=== PATIENT | male | born 2000 | race Two or more races ===

== ENCOUNTER 2022-06-18 12:03 | Inpatient (IN) | payer OTHER, SELFPAY ==
--- NOTE | 2022-06-18 | ECG_ITS ---
Test Reason : MEDICAL CLEARANCE Blood Pressure : / mmHG Vent. Rate : 066 BPM Atrial Rate : 066 BPM P-R Int : 100 ms QRS Dur : 080 ms QT Int : 386 ms P-R-T Axes : 063 044 020 degrees QTc Int : 404 ms Sinus rhythm with short MO Otherwise normal ECG No previous ECGs available Referred By: Jairo Stevens Electronically Signed By:IFEOMA RIDDLE
[2022-06-18 12:49] VITALS: BP 121/65; BP 121/80; PULSE 62; PULSE 80; RESP 18; TEMP 36.2; O2SAT 100; BMI 21.9
--- NOTE | 2022-06-18 13:06 | ED.PSYCH ---
HPI - Psych General Chief Complaint: Psychiatric Symptoms Stated Complaint: SECTION 12 Source: patient Mode of arrival: ambulatory Limitations: no limitations History of Present Illness HPI Narrative: 21 yold male history of schizophrenia presents to the ED for suicidal ideation. Patient seen by [facility] in the field he had a Section 12 for inpatient bed search. Patient states his plan would be to manipulate someone to trip him cecal fall and stab himself with us class. Patient states no support at home and not taking his psych meds. Related Data Home Medications Medication Instructions Recorded Confirmed guanfacine 1 mg tablet 1 mg PO BEDTIME 06/18/22 06/18/22 ibuprofen 400 mg Q8-10H PRN Pain (Scale 06/18/22 06/18/22 Score 4-6) paliperidone 3 mg tablet,extended 6 mg PO DAILY 06/18/22 06/18/22 release 24 hr (Invega) Allergies Allergy/AdvReac Type Severity Reaction Status Date / Time fish derived [fish] AdvReac Stomach Verified 06/18/22 13:12 Upset Review of Systems Review of Systems: Suicidal ideation Yes all other systems are reviewed and are negative [facility] Social History Social History Advance Directives: No Advance Directives Information Provided: No Physical Exam Vital Signs: Vital Signs: Last Vital Signs Temp 97.2 F 06/18/22 12:49 Pulse 62 06/18/22 12:49 Resp 18 06/18/22 12:49 BP 121/65 06/18/22 12:49 Pulse Ox 100 06/18/22 12:49 O2 Del Method 06/18/22 12:49 BMI result Body Mass Index 21.9 Const: General: cooperative, healthy appearing, comfortable, no acute distress, well developed, alert, awake and Physically active Orientation/consciousness: oriented to time and patient oriented x3 HEENT: Head: Yes normal to inspection, Yes No palpable skull fracture present, Yes normocephalic, Yes atraumatic and No abrasion Eyes: General: appearance normal, both eyes and all related structures Neck: Neck: Yes normal visual inspection, Yes full ROM, Yes no lymphadenopathy, Yes no meningeal signs, Yes trachea midline, Yes supple, No anterior neck swelling and No tender Chest: Chest palpation & inspection: normal inspection of the chest and normal palpation of entire chest wall Resp: Effort & Inspection: normal respiratory effort and able to speak in complete sentences Cardio: Jugular venous distension: no JVD Heart sounds: S1 normal heart sound present and S2 normal heart sound present GI: Inspection: Yes normal to inspection and No abdominal wall ecchymosis Palpation (GI): Soft to palpation, not firm, nontender, no guarding and not rigid : General: No CVA tenderness and Yes no CVA tenderness Back/Spine/Pelvis: Back: no CVA tenderness, No CVA tenderness and No back tenderness Skin: General skin exam: no rashes or lesions noted, elasticity normal and turgor normal Neuro: General: oriented to time, patient oriented x3, gait normal, no meningeal signs and CN's II-XI intact bilaterally Cranial nerves: Yes CN's II-XII intact bilaterally Extrem: General: Yes normal to inspection and Yes full ROM Psych: Appearance: grossly normal, well kempt and not disheveled Course Course Course Narrative: Patient accepted to inpatient psych. Will have labs medical evaluation Reevaluation(s) Reevaluation #1: Labs are normal. Patient has a bed search Time: 20:05 MDM - Psych MDM Narrative Medical decision making narrative: Depression Lab Data Result diagrams: 06/18/22 13:36 06/18/22 13:35 Labs: Lab Results 06/18/22 06/18/22 06/18/22 Range/Units 13:35 13:35 13:36 WBC 6.3 (4.8-10.8) X10*3/uL RBC 5.15 (4.60-5.80) X10*6/uL Hgb 14.9 (14.0-18.0) g/dl Hct 44.6 (42.0-52.0) % MCV 86.6 (80.0-98.0) fL MCH 28.9 (27.0-33.0) pg MCHC 33.4 (31.0-36.0) g/dl RDW 12.5 (11.0-16.0) % Plt Count 273 (160-400) X10*3/uL MPV 10.4 (9.4-12.4) fL Immature Gran % (Auto) 0.3 (0.0-0.4) % Neut % (Auto) 60.4 (45-73) % Lymph % (Auto) 29.0 (20-40) % [place] % (Auto) 7.3 (2-11) % Eos % (Auto) 2.7 (0-4) % Baso % (Auto) 0.3 (0-2) % Lymph # (Auto) 1.8 (1.2-4.9) X10*3/uL [place] # (Auto) 0.5 (0.1-1.2) X10*3/uL Eos # (Auto) 0.2 (0.0-0.4) X10*3/uL Baso # (Auto) 0.0 (0.0-0.2) X10*3/uL Abs Immat Gran (auto) 0.02 (0.00-0.03) X10*3/uL Absolute Neuts (auto) 3.8 (2.0-8.3) x10*3/uL Absolute Nucleated RBC 0.000 (0.0-0.012) X10*3/uL Nucleated RBC % (auto) 0.0 (0.0-0.2) /100WBC Sodium 142 (135-145) mmol/L Potassium 3.7 (3.3-5.1) mmol/L Chloride 104 (96-108) mmol/L Carbon Dioxide 28 (22-29) mmol/L Anion Gap 14 (12-20) BUN 12 (9-16) mg/dL Creatinine 0.94 (0.5-1.4) mg/dL Estim Creat Clear Calc 112.5 Estimated GFR > 60 Random Glucose 81 (60-115) mg/dL Calcium 9.3 (8.4-10.2) mg/dL Total Bilirubin 0.6 (0.0-1.0) mg/dL AST 56 H (5-37) U/L ALT 49 H (0-40) U/L Alkaline Phosphatase 67 (39-117) U/L Total Protein 6.2 L (6.5-8.0) g/dL Albumin 4.2 (3.5-5.0) g/dL Urine Opiates Screen Not Detected (Not Detect) Urine Fentanyl Screen Not Detected (Not Detect) Ur Barbiturates Screen Not Detected (Not Detect) Ur Phencyclidine Scrn Not Detected (Not Detect) Ur Amphetamines Screen Not Detected (Not Detect) U Benzodiazepines Scrn Not Detected (Not Detect) Urine Cocaine Screen Not Detected (Not Detect) U Marijuana (THC) Screen POSITIVE H (Not Detect) Ethyl Alcohol < 10 mg/dL COVID-19 (JAZLYN) (Negative) COVID-19 Clin Com 06/18/22 Range/Units 13:41 WBC (4.8-10.8) X10*3/uL RBC (4.60-5.80) X10*6/uL Hgb (14.0-18.0) g/dl Hct (42.0-52.0) % MCV (80.0-98.0) fL MCH (27.0-33.0) pg MCHC (31.0-36.0) g/dl RDW (11.0-16.0) % Plt Count (160-400) X10*3/uL MPV (9.4-12.4) fL Immature Gran % (Auto) (0.0-0.4) % Neut % (Auto) (45-73) % Lymph % (Auto) (20-40) % [place] % (Auto) (2-11) % Eos % (Auto) (0-4) % Baso % (Auto) (0-2) % Lymph # (Auto) (1.2-4.9) X10*3/uL [place] # (Auto) (0.1-1.2) X10*3/uL Eos # (Auto) (0.0-0.4) X10*3/uL Baso # (Auto) (0.0-0.2) X10*3/uL Abs Immat Gran (auto) (0.00-0.03) X10*3/uL Absolute Neuts (auto) (2.0-8.3) x10*3/uL Absolute Nucleated RBC (0.0-0.012) X10*3/uL Nucleated RBC % (auto) (0.0-0.2) /100WBC Sodium (135-145) mmol/L Potassium (3.3-5.1) mmol/L Chloride (96-108) mmol/L Carbon Dioxide (22-29) mmol/L Anion Gap (12-20) BUN (9-16) mg/dL Creatinine (0.5-1.4) mg/dL Estim Creat Clear Calc Estimated GFR Random Glucose (60-115) mg/dL Calcium (8.4-10.2) mg/dL Total Bilirubin (0.0-1.0) mg/dL AST (5-37) U/L ALT (0-40) U/L Alkaline Phosphatase (39-117) U/L Total Protein (6.5-8.0) g/dL Albumin (3.5-5.0) g/dL Urine Opiates Screen (Not Detect) Urine Fentanyl Screen (Not Detect) Ur Barbiturates Screen (Not Detect) Ur Phencyclidine Scrn (Not Detect) Ur Amphetamines Screen (Not Detect) U Benzodiazepines Scrn (Not Detect) Urine Cocaine Screen (Not Detect) U Marijuana (THC) Screen (Not Detect) Ethyl Alcohol mg/dL COVID-19 (JAZLYN) Negative (Negative) COVID-19 Clin Com See Note Discharge Plan Discharge Clinical Impression: Chronic schizophrenia, Depression Patient Disposition: Still a Patient Prescriptions: No Action paliperidone [Invega] 3 mg Tablet Extended Release 24hr 6 mg PO DAILY guanfacine 1 mg Tablet 1 mg PO BEDTIME ibuprofen 400 mg Q8-10H PRN (Reason: Pain (Scale Score 4-6))
[2022-06-18 13:41] LABS: MANUAL DIFF FLAG NO
[2022-06-18 13:45] LABS: Basophils Percent Auto 0.3 % (0-2); Eosinophils Absolute Auto 0.2 X10*3/uL (0.0-0.4); Eosinophils Percent Auto 2.7 % (0-4); Hematocrit 44.6 % (42.0-52.0); Hemoglobin 14.9 g/dl (14.0-18.0); Imm Gran Abs Auto 0.02 X10*3/uL (0.00-0.03); Imm Gran Pct Auto 0.3 % (0.0-0.4); Lymphocytes Absolute Auto 1.8 X10*3/uL (1.2-4.9); Mean Corpuscular HGB Conc 33.4 g/dl (31.0-36.0); Mean Corpuscular Hemoglobin 28.9 pg (27.0-33.0); Mean Corpuscular Volume 86.6 fL (80.0-98.0); Mean Platelet Volume 10.4 fL (9.4-12.4); Monocytes Absolute Auto 0.5 X10*3/uL (0.1-1.2); Monocytes Percent Auto 7.3 % (2-11); Neutrophils Absolute Auto 3.8 x10*3/uL (2.0-8.3); Neutrophils Percent Auto 60.4 % (45-73); Platelet Count 273 X10*3/uL (160-400); Red Blood Count 5.15 X10*6/uL (4.60-5.80); Red Cell Distribution Width 12.5 % (11.0-16.0); White Blood Count 6.3 X10*3/uL (4.8-10.8)
[2022-06-18 14:04] LABS: Alanine Aminotransferase 49 U/L (0-40); Albumin Level 4.2 g/dL (3.5-5.0); Alkaline Phosphatase 67 U/L (39-117); Anion Gap 14 (12-20); Aspartate Amino Transferase 56 U/L (5-37); Bilirubin Total 0.6 mg/dL (0.0-1.0); Blood Urea Nitrogen 12 mg/dL (9-16); Calcium 9.3 mg/dL (8.4-10.2); Carbon Dioxide 28 mmol/L (22-29); Chloride 104 mmol/L (96-108); Creatinine Clr Calc Pharmacy 112.5; Estimated Glomerular Filt Rate > 60; Ethanol < 10 mg/dL; Glucose Random 81 mg/dL (60-115); Potassium 3.7 mmol/L (3.3-5.1); Sodium 142 mmol/L (135-145); Total Protein 6.2 g/dL (6.5-8.0)
[2022-06-18 14:15] LABS: COVID-19 Test Negative (Negative)
[2022-06-18 14:16] LABS: Amphetamine Screen Urine Not Detected (Not Detect); Barbiturates, Urine Not Detected (Not Detect); Benzodiazepines Screen Urine Not Detected (Not Detect); Cannabinoid Screen Urine POSITIVE (Not Detect); Cocaine Screen Urine Not Detected (Not Detect); Fentanyl, urine Not Detected (Not Detect); Opiate Screen Urine Not Detected (Not Detect); Phencyclidine Screen Urine Not Detected (Not Detect)
--- NOTE | 2022-06-18 18:48 | PC.NURSE ---
Late entry- pt found to be vaping in bathroom. Vape removed from pt, provider aware. Pt requesting his dinner, provided with tray, immediately went to the bathroom and started flushing food down the toilet. Food removed from bathroom.
--- NOTE | 2022-06-18 22:46 | PC.NURSE ---
Pt is a COVID-negative 21-year-old male admitted from [facility] with diagnosis of ADHD after engaging in risky behavior and medication non adherence. Pt was not forthcoming during nursing admission assessment. He was cooperative with sometimes intense eye contact. Denies medical history, denies substance abuse. States only mental health care was 16 years ago. Pt reports trying to starve himself and that is why his program brought him to hospital.
[2022-06-18] MEDS: hydrOXYzine HCL 25 MG TABLET PO (23:30)
[2022-06-18] MEDS: traZODone HCL 50 MG TABLET PO (23:30)
[2022-06-18] MEDS: OLANZapine 10 MG TABLET PO (23:56)
[2022-06-18] MEDS: LORazepam 1 MG TABLET 2 MG PO (23:56)
--- NOTE | 2022-06-19 01:52 | PC.NURSE ---
1:1-placed on 1:1 status after being in the shower and ripping apart his underwear and making it into a skirt like garment. patients penis was visible under garment. difficult to get him into clothing but did put on pants with much prompting to do so. after shower did accept po medications for sleep/anxiety but pt's behavior continued to escalate with patient pacing, running in the hallways, running in and out of others room and then flicking the light switch off and on to his and his roommates room when roommate was attempting to sleep. patient's mood exhibited lability exhibiting laughter then tears, appearance of responding to IS, and then appearing suspicious with posturing body movements. did agree to accept additional prn medication when offered.
[2022-06-19 09:44] LABS: Estimated Average Glucose 88 mg/dL; Hemoglobin A1c % 4.7 %
[2022-06-19 10:00] LABS: Cholesterol 130 mg/dL; HDL Cholesterol 45 mg/dL; LDL Cholesterol Calculated 75 mg/dl; Magnesium 2.2 mg/dL (1.6-2.6); Triglycerides 53 mg/dL
[2022-06-19 10:23] LABS: Free T4 (Free Thyroxine) 1.14 ng/dL (0.71-1.85); Thyroid Stimulating Hormone 1.52 uIU/mL (0.32-4.0)
[2022-06-19 10:45] LABS: Folate 5.5 ng/mL (> or = 4.0); Vitamin B12 353 pg/mL (200-900)
--- NOTE | 2022-06-19 10:49 | HO.PSYADMNOT ---
HPI Date of Service: 06/19/22 Chief Complaint: SI Sources of Information: patient interviewed, chart reviewed and crisis/core team assessment reviewed HPI Subjective Notes: Conditional Voluntary Narrative: Mr. Tran is a 21 year-old male with hx of Bipolar Disorder versus Schizoaffective disorder who was brought via EMS after being evaluated by [facility] crisis after [facility] staff called them reporting that pt had stopped medications (paliperidone, guanfacine) about one month and has presented as agitated, walking naked down the street stating he wanted to be a stripper, breaking into store (one week ago) and was arrested. In the ED, his utox is positive for cannabinoids. On the unit, he tore up clothing in shower, was running around without clothes. He received PRN medication of olanzapine with ativan with good effect. Today, pt in bed. He is on a one to one due to inappropriate sexual behaviors and intrusiveness. Pt covers his face with blanket and turns around to avoid further conversation with this underwriter. He reports he does not know why he is here. Although he does report that he was not eating I was not hungry, then states he thinks this is reason for being in the hospital. When asked about incident of walking naked on street and here on the unit, patient states that's not true!. He denies VH/AH but appears internally preoccupied. He denies SI/HI. He reports difficulty sleeping prior to coming to the hospital. Past Psychiatric History: Inpatient:unknown OP: Psychiatrist Dr. White ([phone]); Lucia Crabtree (from [facility]) [facility] [phone] [facility] workerRenaldo [phone] Past medication trials: paliperidone, guanfacine Medical Evaluation Reviewed: Yes [facility] Family History: mother with schizophrenia Social History: Per [facility] records: pt raised by maternal aunt as mother has schizophrenia. He later went to foster home as [employer] tried to poison aunt. Pt aged out of [facility] system and transition to A housing. He has continued to have voluntary services through [facility]. Substance History: cannabis: unknown amount or frequency Trauma History: unknown Diagnostics Vital Signs (24Hr): Vital Signs - 24 hr 06/18/22 12:49 Temperature 97.2 F Pulse Rate 62 Respiratory Rate 18 Blood Pressure 121/65 Pulse Oximetry 100 Oxygen Delivery Method Room Air BMI result Body Mass Index 21.9 Labs Results: 06/18/22 13:36 06/18/22 13:35 Labs: Laboratory Results - last 48 hr 06/18/22 06/18/22 06/18/22 13:35 13:35 13:36 WBC 6.3 RBC 5.15 Hgb 14.9 Hct 44.6 MCV 86.6 MCH 28.9 MCHC 33.4 RDW 12.5 Plt Count 273 MPV 10.4 Immature Gran % (Auto) 0.3 Neut % (Auto) 60.4 Lymph % (Auto) 29.0 [place] % (Auto) 7.3 Eos % (Auto) 2.7 Baso % (Auto) 0.3 Lymph # (Auto) 1.8 [place] # (Auto) 0.5 Eos # (Auto) 0.2 Baso # (Auto) 0.0 Abs Immat Gran (auto) 0.02 Absolute Neuts (auto) 3.8 Absolute Nucleated RBC 0.000 Nucleated RBC % (auto) 0.0 Sodium 142 Potassium 3.7 Chloride 104 Carbon Dioxide 28 Anion Gap 14 BUN 12 Creatinine 0.94 Estim Creat Clear Calc 112.5 Estimated GFR > 60 Random Glucose 81 Estimat Average Glucose Hemoglobin A1c % Calcium 9.3 Magnesium Total Bilirubin 0.6 AST 56 H ALT 49 H Alkaline Phosphatase 67 Total Protein 6.2 L Albumin 4.2 Triglycerides Cholesterol LDL Cholesterol, Calc HDL Cholesterol Vitamin B12 Folate TSH Free T4 Urine Opiates Screen Not Detected Urine Fentanyl Screen Not Detected Ur Barbiturates Screen Not Detected Ur Phencyclidine Scrn Not Detected Ur Amphetamines Screen Not Detected U Benzodiazepines Scrn Not Detected Urine Cocaine Screen Not Detected U Marijuana (THC) Screen POSITIVE H Ethyl Alcohol < 10 COVID-19 (JAZLYN) COVID-19 Clin Com 06/18/22 06/19/22 06/19/22 13:41 09:06 09:06 WBC RBC Hgb Hct MCV MCH MCHC RDW Plt Count MPV Immature Gran % (Auto) Neut % (Auto) Lymph % (Auto) [place] % (Auto) Eos % (Auto) Baso % (Auto) Lymph # (Auto) [place] # (Auto) Eos # (Auto) Baso # (Auto) Abs Immat Gran (auto) Absolute Neuts (auto) Absolute Nucleated RBC Nucleated RBC % (auto) Sodium Potassium Chloride Carbon Dioxide Anion Gap BUN Creatinine Estim Creat Clear Calc Estimated GFR Random Glucose Estimat Average Glucose 88 Hemoglobin A1c % 4.7 Calcium Magnesium 2.2 Total Bilirubin AST ALT Alkaline Phosphatase Total Protein Albumin Triglycerides 53 Cholesterol 130 LDL Cholesterol, Calc 75 HDL Cholesterol 45 Vitamin B12 Folate TSH 1.52 Free T4 1.14 Urine Opiates Screen Urine Fentanyl Screen Ur Barbiturates Screen Ur Phencyclidine Scrn Ur Amphetamines Screen U Benzodiazepines Scrn Urine Cocaine Screen U Marijuana (THC) Screen Ethyl Alcohol COVID-19 (JAZLYN) Negative COVID-19 [employer] Com See Note 06/19/22 09:06 WBC RBC Hgb Hct MCV MCH MCHC RDW Plt Count MPV Immature Gran % (Auto) Neut % (Auto) Lymph % (Auto) [place] % (Auto) Eos % (Auto) Baso % (Auto) Lymph # (Auto) [place] # (Auto) Eos # (Auto) Baso # (Auto) Abs Immat Gran (auto) Absolute Neuts (auto) Absolute Nucleated RBC Nucleated RBC % (auto) Sodium Potassium Chloride Carbon Dioxide Anion Gap BUN Creatinine Estim Creat Clear Calc Estimated GFR Random Glucose Estimat Average Glucose Hemoglobin A1c % Calcium Magnesium Total Bilirubin AST ALT Alkaline Phosphatase Total Protein Albumin Triglycerides Cholesterol LDL Cholesterol, Calc HDL Cholesterol Vitamin B12 353 Folate 5.5 TSH Free T4 Urine Opiates Screen Urine Fentanyl Screen Ur Barbiturates Screen Ur Phencyclidine Scrn Ur Amphetamines Screen U Benzodiazepines Scrn Urine Cocaine Screen U Marijuana (THC) Screen Ethyl Alcohol COVID-19 (JAZLYN) COVID-19 [employer] Com Meds/Allergies Meds Home Medications Medication Instructions Recorded Confirmed Type guanfacine 1 mg tablet 1 mg PO BEDTIME 06/18/22 06/18/22 History ibuprofen 400 mg Q8-10H PRN Pain (Scale 06/18/22 06/18/22 History Score 4-6) paliperidone 3 mg tablet,extended 6 mg PO DAILY 06/18/22 06/18/22 History release 24 hr (Invega) Allergies Allergies Allergy/AdvReac Type Severity Reaction Status Date / Time fish derived [fish] AdvReac Stomach Verified 06/18/22 13:12 Upset Mental Status Exam Mental Status Exam Narrative: Appearance: thin, fair hygiene in NAD Behavior:guarded psychomotor:no agitation or retardation noted Speech:minimally spontaneous, answer with yes or no answers to most questions Thought process:some derailment Thought content:not knowing why he was in hospital Mood:unable to assess Affect: somnolent SI:denies HI:denies VH/AH:appears internally preoccupied Delusions:paranoia, sexualized behaviors Insight/judgment:impaired x 2. Memory/cog: alert, not oriented to situation. Assessment & Plan Assessment & Plan (1) Schizoaffective disorder, bipolar type: Status: Acute Code(s): F25.0 - Schizoaffective disorder, bipolar type Plan Mr. Tran is a 21 year-old male with hx of schizoaffective disorder who was brought via EMS to [facility] due to pt presenting with agitation, engaging in risky behaviors ([employer]HA suspect prostitution and breaking into store), walking naked on street, not sleeping or eating. utox positive for cannabinoids. Pt on unit attempting to run naked, disorganized speech, guarded. We discussed risks, benefits and alternative treatment options. Will start lithium for mood stabilization, continue paliperidone, will do STD testing. PLAN 1. admit to , , currently on one to one due to inappropriate sexual conduct and poor boundaries. 2. continue paliperidone, start lithium 300mg po BID, ativan and olanzapine prn for agitation 3. obtain collateral information 4. aftercare planning. Patient educated on: diagnosis, medication risk/benefits and substance abuse Reason for continued inpatient stay Substantial Risk for: harm to self, harm to others and inability to function
[2022-06-19 12:54] VITALS: BP 126/58; PULSE 50; RESP 15; TEMP 36.6; O2SAT 100
[2022-06-19] MEDS: Paliperidone ER 6 MG TAB.ER.24 PO (13:02)
--- NOTE | 2022-06-19 15:50 | PC.NURSE ---
At 1545, pt was in the hallway when he ran by the nurses station and intentionally threw himself on the ground. This was witnessed by this RN and Le Pollack. Pt did not hit his head or injure himself. When this RN and Le Pollack went up to the patient to ask why he threw himself on the floor, pt responded I was just looking for my dinner, when is dinner supposed to be here.
[2022-06-19 16:06] LABS: Syphilis Screen Nonreactive (Nonreactive)
[2022-06-19 22:40] VITALS: RESP 16
--- NOTE | 2022-06-20 09:07 | HO.PSYCHPN ---
Subjective Subjective Date of Service: 06/20/22 Reason For Visit: SI Subjective Notes: Chong Warning Interim History: I spoke with pt's team, no behavioral concerns. I spoke with pt today, pt denies SE on medication, adherent, says I have to respect taking them, I feel more calm. Sleep is pretty good. Denies anxiety. Says he is depressed and attributes this to feeling aimless, does not know where to head my future. Denies A/VH. Denies paranoia. Denies SI/SIB, says he feels safe. Medication Compliance: Yes Side effects from medications: No Attending Groups: No Review of Systems Acute medical concerns: No Medical Review of Systems: unchanged Mental Status Exam Mental Status Exam Narrative: Appearance: thin, fair hygiene in NAD Behavior:guarded psychomotor:no agitation or retardation noted Speech:minimally spontaneous, answer with yes or no answers to most questions Thought process:some derailment Thought content:not knowing why he was in hospital Mood:unable to assess Affect: somnolent SI:denies HI:denies VH/AH:appears internally preoccupied Delusions:paranoia, sexualized behaviors Insight/judgment:impaired x 2. Memory/cog: alert, not oriented to situation. Diagnostics Vital Signs (24Hr): Vital Signs - 24 hr 06/19/22 12:54 06/19/22 22:40 Temperature 97.9 F Pulse Rate 50 Respiratory Rate 15 16 Blood Pressure 126/58 L Pulse Oximetry 100 Oxygen Delivery Method Room Air BMI result Body Mass Index 21.9 Labs Results: 06/18/22 13:36 06/18/22 13:35 Labs: Laboratory Results - last 48 hr 06/18/22 06/18/22 06/18/22 13:35 13:35 13:36 WBC 6.3 RBC 5.15 Hgb 14.9 Hct 44.6 MCV 86.6 MCH 28.9 MCHC 33.4 RDW 12.5 Plt Count 273 MPV 10.4 Immature Gran % (Auto) 0.3 Neut % (Auto) 60.4 Lymph % (Auto) 29.0 [place] % (Auto) 7.3 Eos % (Auto) 2.7 Baso % (Auto) 0.3 Lymph # (Auto) 1.8 [place] # (Auto) 0.5 Eos # (Auto) 0.2 Baso # (Auto) 0.0 Abs Immat Gran (auto) 0.02 Absolute Neuts (auto) 3.8 Absolute Nucleated RBC 0.000 Nucleated RBC % (auto) 0.0 Sodium 142 Potassium 3.7 Chloride 104 Carbon Dioxide 28 Anion Gap 14 BUN 12 Creatinine 0.94 Estim Creat Clear Calc 112.5 Estimated GFR > 60 Random Glucose 81 Estimat Average Glucose Hemoglobin A1c % Calcium 9.3 Magnesium Total Bilirubin 0.6 AST 56 H ALT 49 H Alkaline Phosphatase 67 Total Protein 6.2 L Albumin 4.2 Triglycerides Cholesterol LDL Cholesterol, Calc HDL Cholesterol Vitamin B12 Folate TSH Free T4 Urine Opiates Screen Not Detected Urine Fentanyl Screen Not Detected Ur Barbiturates Screen Not Detected Ur Phencyclidine Scrn Not Detected Ur Amphetamines Screen Not Detected U Benzodiazepines Scrn Not Detected Urine Cocaine Screen Not Detected U Marijuana (THC) Screen POSITIVE H Ethyl Alcohol < 10 T.pallidum Ab (EIA) COVID-19 (JAZLYN) COVID-19 [employer] 06/18/22 06/19/22 06/19/22 13:41 09:06 09:06 WBC RBC Hgb Hct MCV MCH MCHC RDW Plt Count MPV Immature Gran % (Auto) Neut % (Auto) Lymph % (Auto) [place] % (Auto) Eos % (Auto) Baso % (Auto) Lymph # (Auto) [place] # (Auto) Eos # (Auto) Baso # (Auto) Abs Immat Gran (auto) Absolute Neuts (auto) Absolute Nucleated RBC Nucleated RBC % (auto) Sodium Potassium Chloride Carbon Dioxide Anion Gap BUN Creatinine Estim Creat Clear Calc Estimated GFR Random Glucose Estimat Average Glucose 88 Hemoglobin A1c % 4.7 Calcium Magnesium 2.2 Total Bilirubin AST ALT Alkaline Phosphatase Total Protein Albumin Triglycerides 53 Cholesterol 130 LDL Cholesterol, Calc 75 HDL Cholesterol 45 Vitamin B12 Folate TSH 1.52 Free T4 1.14 Urine Opiates Screen Urine Fentanyl Screen Ur Barbiturates Screen Ur Phencyclidine Scrn Ur Amphetamines Screen U Benzodiazepines Scrn Urine Cocaine Screen U Marijuana (THC) Screen Ethyl Alcohol T.pallidum Ab (EIA) COVID-19 (JAZLYN) Negative COVID-19 [employer] See Note 06/19/22 06/19/22 09:06 10:45 WBC RBC Hgb Hct MCV MCH MCHC RDW Plt Count MPV Immature Gran % (Auto) Neut % (Auto) Lymph % (Auto) [place] % (Auto) Eos % (Auto) Baso % (Auto) Lymph # (Auto) [place] # (Auto) Eos # (Auto) Baso # (Auto) Abs Immat Gran (auto) Absolute Neuts (auto) Absolute Nucleated RBC Nucleated RBC % (auto) Sodium Potassium Chloride Carbon Dioxide Anion Gap BUN Creatinine Estim Creat Clear Calc Estimated GFR Random Glucose Estimat Average Glucose Hemoglobin A1c % Calcium Magnesium Total Bilirubin AST ALT Alkaline Phosphatase Total Protein Albumin Triglycerides Cholesterol LDL Cholesterol, Calc HDL Cholesterol Vitamin B12 353 Folate 5.5 TSH Free T4 Urine Opiates Screen Urine Fentanyl Screen Ur Barbiturates Screen Ur Phencyclidine Scrn Ur Amphetamines Screen U Benzodiazepines Scrn Urine Cocaine Screen U Marijuana (THC) Screen Ethyl Alcohol T.pallidum Ab (EIA) Nonreactive COVID-19 (JAZLYN) COVID-19 Clin Com Medications Medications Current Medications Acetaminophen (Acetaminophen 325 Mg Tablet) 650 mg PO Q6H PRN PRN Reason: Headache/Pain Mild Scale (1-3) Al Hydroxide/Mg Hydroxide (Magnesium Hydrox/Alum Hydrox 30 Ml Oral.Susp) 30 ml PO Q6H PRN PRN Reason: Heartburn/Nausea Hydroxyzine HCl (Hydroxyzine Hcl 25 Mg Tablet) 25 mg PO Q6H PRN PRN Reason: Anxiety Last Admin: 06/18/22 23:30 Dose: 25 mg Ibuprofen (Ibuprofen 400 Mg Tablet) 400 mg PO Q8H PRN PRN Reason: Pain (Scale Score 4-6) [place] Carbonate ([place] Carbonate 300 Mg Capsule) 300 mg PO BID DALIA Last Admin: 06/19/22 23:40 Dose: Not Given Lorazepam (Lorazepam 1 Mg Tablet) 1 mg PO Q6H PRN PRN Reason: agitation/anxiety/sleep Magnesium Hydroxide (Milk Of Magnesia 30 Ml Oral.Susp) 30 ml PO DAILY PRN PRN Reason: Constipation Non-Formulary Medication (Guanfacine) 1 mg PO BEDTIME DALIA Olanzapine (Olanzapine Odt 10 Mg Tab.Rapdis) 10 mg TRANSLINGU Q6H PRN PRN Reason: agitation Paliperidone (Paliperidone Er 6 Mg Tab.Er.24) 6 mg PO DAILY DALIA Last Admin: 06/19/22 13:02 Dose: 6 mg Trazodone HCl (Trazodone Hcl 50 Mg Tablet) 50 mg PO BEDTIME PRN PRN Reason: Insomnia Last Admin: 06/18/22 23:30 Dose: 50 mg Allergies Allergies Allergy/AdvReac Type Severity Reaction Status Date / Time fish derived [fish] AdvReac Stomach Verified 06/18/22 13:12 Upset Assessment & Plan Assessment & Plan (1) Schizoaffective disorder, bipolar type: Status: Acute Code(s): F25.0 - Schizoaffective disorder, bipolar type Plan Mr. Tran is a 21 year-old male with hx of schizoaffective disorder who was brought via EMS to [facility] [place] ED due to pt presenting with agitation, engaging in risky behaviors (MHA suspect prostitution and breaking into store), walking naked on street, not sleeping or eating. utox positive for cannabinoids. Pt on unit attempting to run naked, disorganized speech, guarded. We discussed risks, benefits and alternative treatment options. Will start lithium for mood stabilization, continue paliperidone, will do STD testing. PLAN 1. admit to , CV, currently on one to one due to inappropriate sexual conduct and poor boundaries. 2. continue paliperidone, start lithium 300mg po BID, ativan and olanzapine prn for agitation 3. obtain collateral information 4. aftercare planning. 06/20: No med adjustments, pt is maintaining behavioral control, will be taken off 1:1 I spent minutes with the patient and/or on the patient floor today, greater than?50% of which was spent counseling/coordinating care. Patient educated on: medication risk/benefits and therapeutic strategies Reason for contiued inpatient stay Substantial Risk for: inability to function, rapid decompensation and med/psych decompensation
[2022-06-20 10:30] VITALS: BP 125/64; PULSE 65; RESP 18; TEMP 36.6; O2SAT 97
[2022-06-20] MEDS: Lithium Carbonate 300 MG CAPSULE PO (11:20)
[2022-06-20] MEDS: Paliperidone ER 6 MG TAB.ER.24 PO (11:20)
[2022-06-20 23:20] VITALS: RESP 16
[2022-06-21 08:15] VITALS: BP 118/74; PULSE 81; RESP 20; TEMP 36.9; O2SAT 98
[2022-06-21] MEDS: Paliperidone ER 6 MG TAB.ER.24 PO (08:30)
[2022-06-21] MEDS: Lithium Carbonate 300 MG CAPSULE PO ×2 (08:30→20:42)
--- NOTE | 2022-06-21 13:47 | P.PNPSI_ITS ---
Subjective Subjective Date of Service: 06/22/22 Reason For Visit: SI Subjective Notes: Chong Warning Interim History: I spoke with team, pt has been in behavioral control in regards to inappropriate sexual bx/ disinhibition. Adherent with medication. Has been walking around in a wig. This prompted the question of pt's preferred pronouns, which are she/her or they/them, preferred name is Mr. Tran. Says they feel pretty good. I like it here. Sleep was perfect. No questions or concerns. Says they like their meds. Says clonidine helped with sleep. Denies SI/SIB, says they feel safe. Medication Compliance: Yes Side effects from medications: No Attending Groups: No Review of Systems Acute medical concerns: No Medical Review of Systems: unchanged Diagnostics Vital Signs (24Hr): Vital Signs - 24 hr 06/20/22 23:20 06/21/22 08:15 Temperature 98.5 F Pulse Rate 81 Respiratory Rate 16 20 Blood Pressure 118/74 Pulse Oximetry 98 Oxygen Delivery Method Room Air BMI result Body Mass Index 21.9 Labs Results: 06/18/22 13:36 06/18/22 13:35 Labs: Laboratory Results - last 48 hr 06/19/22 10:45 T.pallidum Ab (EIA) Nonreactive Medications Medications Current Medications Acetaminophen (Acetaminophen 325 Mg Tablet) 650 mg PO Q6H PRN PRN Reason: Headache/Pain Mild Scale (1-3) Al Hydroxide/Mg Hydroxide (Magnesium Hydrox/Alum Hydrox 30 Ml Oral.Susp) 30 ml PO Q6H PRN PRN Reason: Heartburn/Nausea Clonidine HCl (Clonidine Hcl 0.1 Mg Tablet) 0.1 mg PO BEDTIME DALIA; Protocol Last Admin: 06/20/22 23:55 Dose: Not Given Hydroxyzine HCl (Hydroxyzine Hcl 25 Mg Tablet) 25 mg PO Q6H PRN PRN Reason: Anxiety Last Admin: 06/18/22 23:30 Dose: 25 mg Ibuprofen (Ibuprofen 400 Mg Tablet) 400 mg PO Q8H PRN PRN Reason: Pain (Scale Score 4-6) [place] Carbonate ([place] Carbonate 300 Mg Capsule) 300 mg PO BID DALIA Last Admin: 06/21/22 08:30 Dose: 300 mg Lorazepam (Lorazepam 1 Mg Tablet) 1 mg PO Q6H PRN PRN Reason: agitation/anxiety/sleep Magnesium Hydroxide (Milk Of Magnesia 30 Ml Oral.Susp) 30 ml PO DAILY PRN PRN Reason: Constipation Olanzapine (Olanzapine Odt 10 Mg Tab.Rapdis) 5 mg TRANSLINGU Q6H PRN PRN Reason: agitation, anxiety Paliperidone (Paliperidone Er 6 Mg Tab.Er.24) 6 mg PO DAILY DALIA Last Admin: 06/21/22 08:30 Dose: 6 mg Trazodone HCl (Trazodone Hcl 50 Mg Tablet) 50 mg PO BEDTIME PRN PRN Reason: Insomnia Last Admin: 06/18/22 23:30 Dose: 50 mg Allergies Allergies Allergy/AdvReac Type Severity Reaction Status Date / Time fish derived [fish] AdvReac Stomach Verified 06/18/22 13:12 Upset Assessment & Plan Assessment & Plan (1) Schizoaffective disorder, bipolar type: Status: Acute Code(s): F25.0 - Schizoaffective disorder, bipolar type Plan Mr. Tran is a 21 year-old male with hx of schizoaffective disorder who was brought via EMS to [facility] [place] ED due to pt presenting with agitation, engaging in risky behaviors (MHA suspect prostitution and breaking into store), walking naked on street, not sleeping or eating. utox positive for cannabinoids. Pt on unit at tempting to run naked, disorganized speech, guarded. We discussed risks, benefits and alternative treatment options. Will start lithium for mood stabilization, continue paliperidone, will do STD testing. PLAN 1. admit to M[facility], CV, currently on one to one due to inappropriate sexual conduct and poor boundaries. 2. continue paliperidone, start lithium 300mg po BID, ativan and olanzapine prn for agitation 3. obtain collateral information 4. aftercare planning. 06/20: Clonidine started at 0.1 mg QHS, as guanfacine is not on formulary. Pt is maintaining behavioral control, will be taken off 1:1 06/21: No med adjustments, pt isolative, will be on 5 min checks while wearing wig. I spent minutes with the patient and/or on the patient floor today, greater than?50% of which was spent counseling/coordinating care. Patient educated on: medication risk/benefits and therapeutic strategies Reason for contiued inpatient stay Substantial Risk for: rapid decompensation and med/psych decompensation
[2022-06-21 20:30] VITALS: BP 105/56; PULSE 68; RESP 16; TEMP 36.6; O2SAT 97
[2022-06-21] MEDS: cloNIDine HCL 0.1 MG TABLET PO (20:43)
[2022-06-22 08:05] LABS: HIV AB/AG Nonreactive (Nonreactive); HIV Num 1 0.04 S/CO (0.00-0.99)
[2022-06-22 08:09] LABS: HBS Num1 1.05 mIU/mL (0-7.99); HBc Num1 0.11 S/CO (0.00-0.79); HBsAGNum1 0.25 S/CO (0.00-0.99); Hepatitis B Core Antibody Nonreactive (Nonreactive); Hepatitis B Surface Antigen Negative (Negative); ~HepC Num1 0.05 S/CO (0.00-0.79); ~Hepatitis B Surface Antibody NONREACTIVE (Nonreactive); ~Hepatitis C Antibody Nonreactive (Nonreactive)
[2022-06-22 08:15] VITALS: BP 113/57; PULSE 67; RESP 16; TEMP 36.5; O2SAT 98
[2022-06-22] MEDS: Paliperidone ER 6 MG TAB.ER.24 PO (09:03)
[2022-06-22] MEDS: Lithium Carbonate 300 MG CAPSULE PO ×2 (09:03→20:55)
--- NOTE | 2022-06-22 14:12 | P.PNPSI_ITS ---
Subjective Subjective Date of Service: 06/22/22 Reason For Visit: SI Interim History: calm, cooperative. visible in milieu, seen dancing in the link while listening to headphones. amenable to interview. reports that since admission and med changes feeling that his anxiety has become very calm. feels way calmer. more positive, less sad. agreeable to continue current regimen pending input from [facility] staff on baseline and ability to return to home. per staff, 4/10 anxiety. appearing to be RIS. dancing in the halls. visible, pacing. showered, worried about weight gain. denied SI/HI/AVH. no issues, although did appear to have thrown his food all over his room and claimed he spilled it. med compliant, sleeping through the night. Mental Status Exam Mental Status Exam Narrative: long tyler-haired wig, swinging hair about in the link. no PMA/PMR. cooperati ve. speech nml rate, amount, loudness, tone, latency. thoughts linear and logical. affect full range, mildly hyper-intense, non-labile, appearing happier than the situation would seem to call for. mood way calmer. more positive, less sad. no SI/HI/AVH expressed. Diagnostics Vital Signs (24Hr): Vital Signs - 24 hr 06/21/22 20:30 06/22/22 08:15 Temperature 97.9 F 97.7 F Pulse Rate 68 67 Respiratory Rate 16 16 Blood Pressure 105/56 L 113/57 L Pulse Oximetry 97 98 Oxygen Delivery Method Room Air Room Air BMI result Body Mass Index 21.9 Labs Results: 06/18/22 13:36 06/18/22 13:35 Labs: Laboratory Results - last 48 hr 06/19/22 06/19/22 10:45 10:45 Hep Bs Antigen Negative Hep Bs Antibody NONREACTIVE Hep B Core Total Ab Nonreactive Hepatitis C Ab (EIA) Nonreactive HIV 1&2 Ab/P24 Ag 4thGn Nonreactive Medications Medications Current Medications Acetaminophen (Acetaminophen 325 Mg Tablet) 650 mg PO Q6H PRN PRN Reason: Headache/Pain Mild Scale (1-3) Al Hydroxide/Mg Hydroxide (Magnesium Hydrox/Alum Hydrox 30 Ml Oral.Susp) 30 ml PO Q6H PRN PRN Reason: Heartburn/Nausea Clonidine HCl (Clonidine Hcl 0.1 Mg Tablet) 0.1 mg PO BEDTIME DALIA; Protocol Last Admin: 06/21/22 20:43 Dose: 0.1 mg Hydroxyzine HCl (Hydroxyzine Hcl 25 Mg Tablet) 25 mg PO Q6H PRN PRN Reason: Anxiety Last Admin: 06/18/22 23:30 Dose: 25 mg Ibuprofen (Ibuprofen 400 Mg Tablet) 400 mg PO Q8H PRN PRN Reason: Pain (Scale Score 4-6) [place] Carbonate ([place] Carbonate 300 Mg Capsule) 300 mg PO BID DALIA Last Admin: 06/22/22 09:03 Dose: 300 mg Lorazepam (Lorazepam 1 Mg Tablet) 1 mg PO Q6H PRN PRN Reason: agitation/anxiety/sleep Magnesium Hydroxide (Milk Of Magnesia 30 Ml Oral.Susp) 30 ml PO DAILY PRN PRN Reason: Constipation Olanzapine (Olanzapine Odt 10 Mg Tab.Rapdis) 5 mg TRANSLINGU Q6H PRN PRN Reason: agitation, anxiety Paliperidone (Paliperidone Er 6 Mg Tab.Er.24) 6 mg PO DAILY DALIA Last Admin: 06/22/22 09:03 Dose: 6 mg Trazodone HCl (Trazodone Hcl 50 Mg Tablet) 50 mg PO BEDTIME PRN PRN Reason: Insomnia Last Admin: 06/18/22 23:30 Dose: 50 mg Allergies Allergies Allergy/AdvReac Type Severity Reaction Status Date / Time fish derived [fish] AdvReac Stomach Verified 06/18/22 13:12 Upset Assessment & Plan Assessment & Plan (1) Schizoaffective disorder, bipolar type: Status: Acute Code(s): F25.0 - Schizoaffective disorder, bipolar type Plan Mr. Tran is a 21 year-old male with hx of schizoaffective disorder who was brought via EMS to [facility] due to pt presenting with agitation, engaging in risky behaviors (MHA suspect prostitution and breaking into store), walking naked on street, not sleeping or eating. utox positive for cannabinoids. Pt on unit attempting to run naked, disorganized speech, guarded. We discussed risks, benefits and alternative treatment options. Will start lithium for mood stabilization, continue paliperidone, will do STD testing. PLAN 06/19: continue paliperidone, start lithium 300mg po BID, ativan and olanzapine prn for agitation 06/20: Clonidine started at 0.1 mg QHS, as guanfacine is not on formulary. Pt is maintaining behavioral control, will be taken off 1:1 06/21: No med adjustments, pt isolative, will be on 5 min checks while wearing wig. 06/22: pt social, visible in milieu, dancing in the halls. continue current regimen. T/C lithium dosing increase. I spent ___25___ minutes with the patient and/or on the patient floor today, greater than?50% of which was spent counseling/coordinating care. Reason for contiued inpatient stay Substantial Risk for: inability to function and rapid decompensation
[2022-06-22 20:30] VITALS: BP 122/62; PULSE 66; RESP 16; TEMP 36.6; O2SAT 98
[2022-06-22] MEDS: cloNIDine HCL 0.1 MG TABLET PO (20:56)
[2022-06-23] MEDS: Lithium Carbonate 300 MG CAPSULE PO (08:17)
[2022-06-23] MEDS: Paliperidone ER 6 MG TAB.ER.24 PO (08:17)
[2022-06-23 08:18] VITALS: BP 107/51; PULSE 56; RESP 16; TEMP 36.4; O2SAT 100
--- NOTE | 2022-06-23 15:03 | HO.PSYCHPN ---
Subjective Subjective Date of Service: 06/23/22 Reason For Visit: SI Interim History: labile, hystrionic, screaming in the hallway for 10 minutes. amenable to meet with , states he was referred to as a she by staff, which was very triggering. broached many instances of prejudice against him as a homosexual. eventually calmed and agreed to increase lithium to 600 BID. hypersexual, talking about his keen enjoyment of fellatio and expressing interest to suck doctor katey. unit rules and boundaries reinforced with pt. per staff, visible, med and meal compliant. using the N word, which was triggering to particular peer. slept well overnight. Mental Status Exam Mental Status Exam Narrative: long tyler-haired wig, swinging hair about in the link. PMA of agitated pacing. cooperative. speech incr rate, amount, loudness, nml tone, decr latency. thoughts wandering, circumstantial. affect full range, hyper-intense, labile. no SI/HI/AVH expressed. Diagnostics Vital Signs (24Hr): Vital Signs - 24 hr 06/22/22 20:30 06/23/22 08:18 Temperature 97.9 F 97.6 F Pulse Rate 66 56 Respiratory Rate 16 16 Blood Pressure 122/62 107/51 L Pulse Oximetry 98 100 Oxygen Delivery Method Room Air Room Air BMI result Body Mass Index 21.9 Labs Results: 06/18/22 13:36 06/18/22 13:35 Labs: Laboratory Results - last 48 hr 06/19/22 06/19/22 10:45 10:45 Hep Bs Antigen Negative Hep Bs Antibody NONREACTIVE Hep B Core Total Ab Nonreactive Hepatitis C Ab (EIA) Nonreactive HIV 1&2 Ab/P24 Ag 4thGn Nonreactive Medications Medications Current Medications Acetaminophen (Acetaminophen 325 Mg Tablet) 650 mg PO Q6H PRN PRN Reason: Headache/Pain Mild Scale (1-3) Al Hydroxide/Mg Hydroxide (Magnesium Hydrox/Alum Hydrox 30 Ml Oral.Susp) 30 ml PO Q6H PRN PRN Reason: Heartburn/Nausea Clonidine HCl (Clonidine Hcl 0.1 Mg Tablet) 0.1 mg PO BEDTIME DALIA; Protocol Last Admin: 06/22/22 20:56 Dose: 0.1 mg Hydroxyzine HCl (Hydroxyzine Hcl 25 Mg Tablet) 25 mg PO Q6H PRN PRN Reason: Anxiety Last Admin: 06/18/22 23:30 Dose: 25 mg Ibuprofen (Ibuprofen 400 Mg Tablet) 400 mg PO Q8H PRN PRN Reason: Pain (Scale Score 4-6) [place] Carbonate ([place] Carbonate 300 Mg Capsule) 600 mg PO BID DALIA Lorazepam (Lorazepam 1 Mg Tablet) 1 mg PO Q6H PRN PRN Reason: agitation/anxiety/sleep Magnesium Hydroxide (Milk Of Magnesia 30 Ml Oral.Susp) 30 ml PO DAILY PRN PRN Reason: Constipation Olanzapine (Olanzapine Odt 10 Mg Tab.Rapdis) 5 mg TRANSLINGU Q6H PRN PRN Reason: agitation, anxiety Paliperidone (Paliperidone Er 6 Mg Tab.Er.24) 6 mg PO DAILY DALIA Last Admin: 06/23/22 08:17 Dose: 6 mg Trazodone HCl (Trazodone Hcl 50 Mg Tablet) 50 mg PO BEDTIME PRN PRN Reason: Insomnia Last Admin: 06/18/22 23:30 Dose: 50 mg Allergies Allergies Allergy/AdvReac Type Severity Reaction Status Date / Time fish derived [fish] AdvReac Stomach Verified 06/18/22 13:12 Upset Assessment & Plan Assessment & Plan (1) Schizoaffective disorder, bipolar type: Status: Acute Code(s): F25.0 - Schizoaffective disorder, bipolar type Plan Mr. Tran is a 21 year-old male with hx of schizoaffective disorder who was brought via EMS to [facility] ED due to pt presenting with agitation, engaging in risky behaviors (MHA suspect prostitution and breaking into store), walking naked on street, not sleeping or eating. utox positive for cannabinoids. Pt on unit attempting to run naked, disorganized speech, guarded. We discussed risks, benefits and alternative treatment options. Will start lithium for mood stabilization, continue paliperidone, will do STD testing. PLAN 06/19: continue paliperidone, start lithium 300mg po BID, ativan and olanzapine prn for agitation 06/20: Clonidine started at 0.1 mg QHS, as guanfacine is not on formulary. Pt is maintaining behavioral control, will be taken off 1:1 06/21: No med adjustments, pt isolative, will be on 5 min checks while wearing wig. 06/22: pt social, visible in milieu, dancing in the halls. continue current regimen. T/C lithium dosing increase. 06/23: labile, agitated, hypersexual. agrees to increase lithium to 600 BID. check labs 06/29. I spent ___35___ minutes with the patient and/or on the patient floor today, greater than?50% of which was spent counseling/coordinating care. Reason for contiued inpatient stay Substantial Risk for: inability to function and rapid decompensation
[2022-06-23 21:09] VITALS: BP 115/65; PULSE 62; RESP 16; TEMP 36.5; O2SAT 99
[2022-06-23] MEDS: Lithium Carbonate 300 MG CAPSULE 600 MG PO (21:10)
[2022-06-23] MEDS: cloNIDine HCL 0.1 MG TABLET PO (21:10)
[2022-06-24 07:25] LABS: Hepatitis A Antibody IgM 0.12 Index (0-0.79); ~Hepatitis A Antibody IgM Nonreactive (Nonreactive)
[2022-06-24] MEDS: Paliperidone ER 6 MG TAB.ER.24 PO (08:43)
[2022-06-24] MEDS: Lithium Carbonate 300 MG CAPSULE 600 MG PO ×2 (08:43→21:19)
[2022-06-24 08:50] VITALS: BP 113/62; PULSE 84; RESP 20; TEMP 36.4; O2SAT 98
--- NOTE | 2022-06-24 15:01 | MHC.CLN ---
F/U PATIENT REPORTS NO CONCERNS WITH INTAKE AND THAT EATING BETTER THAN PRIOR TO ADMIT. DOES NOT WANT SUPPLEMENT. INTAKE VARIABLE 25-100%. NO NEW NUTRITION INTERVENTIONS.
--- NOTE | 2022-06-24 15:55 | HO.PSYCHPN ---
Subjective Subjective Date of Service: 06/24/22 Reason For Visit: SI Subjective Notes: Conditional Voluntary Interim History: Pt continues to report desire to suck dicks, many dicks. Pt states he wants to walk down unit naked, and that he does not care if others see him naked. Pt with limited insight a to how this would be problematic here and other public places. He reports feeling horny. Sexually preoccupied. Pt states ge is trying to comp;y with policies on the unit and not undress in public. We discussed increasing paliperidone to 9mg po daily. Continue lithium. Medication Compliance: Yes Side effects from medications: No Attending Groups: No Review of Systems Review of Systems Yes all other systems are reviewed and are negative and Unobtainable due to mental status Mental Status Exam Mental Status Exam Narrative: long tyler-haired wig, swinging hair about in the link. PMA of agitated pacing. cooperative. speech incr rate, amount, loudness, nml tone, decr latency. thoughts wandering, circumstantial. affect full range, hyper-intense, labile. no SI/HI/AVH expressed. Diagnostics Vital Signs (24Hr): Vital Signs - 24 hr 06/23/22 21:09 06/24/22 08:50 Temperature 97.7 F 97.5 F Pulse Rate 62 84 Respiratory Rate 16 20 Blood Pressure 115/65 113/62 Pulse Oximetry 99 98 Oxygen Delivery Method Room Air Room Air BMI result Body Mass Index 21.9 Labs Results: 06/18/22 13:36 06/18/22 13:35 Labs: Laboratory Results - last 48 hr 06/19/22 10:45 Hepatitis A IgM Ab Nonreactive Medications Medications Current Medications Acetaminophen (Acetaminophen 325 Mg Tablet) 650 mg PO Q6H PRN PRN Reason: Headache/Pain Mild Scale (1-3) Al Hydroxide/Mg Hydroxide (Magnesium Hydrox/Alum Hydrox 30 Ml Oral.Susp) 30 ml PO Q6H PRN PRN Reason: Heartburn/Nausea Clonidine HCl (Clonidine Hcl 0.1 Mg Tablet) 0.1 mg PO BEDTIME DALIA; Protocol Last Admin: 06/23/22 21:10 Dose: 0.1 mg Hydroxyzine HCl (Hydroxyzine Hcl 25 Mg Tablet) 25 mg PO Q6H PRN PRN Reason: Anxiety Last Admin: 06/18/22 23:30 Dose: 25 mg Ibuprofen (Ibuprofen 400 Mg Tablet) 400 mg PO Q8H PRN PRN Reason: Pain (Scale Score 4-6) [place] Carbonate ([place] Carbonate 300 Mg Capsule) 600 mg PO BID DALIA Last Admin: 06/24/22 08:43 Dose: 600 mg Lorazepam (Lorazepam 1 Mg Tablet) 1 mg PO Q6H PRN PRN Reason: agitation/anxiety/sleep Magnesium Hydroxide (Milk Of Magnesia 30 Ml Oral.Susp) 30 ml PO DAILY PRN PRN Reason: Constipation Olanzapine (Olanzapine Odt 10 Mg Tab.Rapdis) 5 mg TRANSLINGU Q6H PRN PRN Reason: agitation, anxiety Trazodone HCl (Trazodone Hcl 50 Mg Tablet) 50 mg PO BEDTIME PRN PRN Reason: Insomnia Last Admin: 06/18/22 23:30 Dose: 50 mg Allergies Allergies Allergy/AdvReac Type Severity Reaction Status Date / Time fish derived [fish] AdvReac Stomach Verified 06/18/22 13:12 Upset Assessment & Plan Assessment & Plan (1) Schizoaffective disorder, bipolar type: Status: Acute Code(s): F25.0 - Schizoaffective disorder, bipolar type Plan Mr. Tran is a 21 year-old male with hx of schizoaffective disorder who was brought via EMS to [facility] due to pt presenting with agitation, engaging in risky behaviors (MHA suspect prostitution and breaking into store), walking naked on street, not sleeping or eating. utox positive for cannabinoids. Pt on unit attempting to run naked, disorganized speech, guarded. We discussed risks, benefits and alternative treatment options. Will start lithium for mood stabilization, continue paliperidone, will do STD testing. PLAN 06/19: continue paliperidone, start lithium 300mg po BID, ativan and olanzapine prn for agitation 06/20: Clonidine started at 0.1 mg QHS, as guanfacine is not on formulary. Pt is maintaining behavioral control, will be taken off 1:1 06/21: No med adjustments, pt isolative, will be on 5 min checks while wearing wig. 06/22: pt social, visible in milieu, dancing in the halls. continue current regimen. T/C lithium dosing increase. 06/23: labile, agitated, hypersexual. agrees to increase lithium to 600 BID. check labs 06/29. 06/24 increase paliperidone to 9mg po daily. continue lithium. I spent ___25___ minutes with the patient and/or on the patient floor today, greater than?50% of which was spent counseling/coordinating care. Reason for contiued inpatient stay Substantial Risk for: harm to others and inability to function
[2022-06-24] MEDS: cloNIDine HCL 0.1 MG TABLET PO (21:25)
[2022-06-24 21:27] VITALS: BP 118/59; PULSE 64; RESP 16; TEMP 36.6; O2SAT 98
[2022-06-25 08:30] VITALS: BP 112/64; PULSE 63; RESP 18; TEMP 36.2; O2SAT 99
[2022-06-25] MEDS: Paliperidone ER 9 MG TAB.ER.24 PO (08:48)
[2022-06-25] MEDS: Lithium Carbonate 300 MG CAPSULE 600 MG PO (08:48)
--- NOTE | 2022-06-25 13:13 | P.PNPSI_ITS ---
Subjective Subjective Date of Service: 06/25/22 Reason For Visit: SI Interim History: calm, cooperative, hyper-intense, wordy. states he is no longer sexual. reports he is in a good mood, no concerns. MD inquires as to his behavioral dyscontrol yesterday, he reports he was upset that his roommate was being discharged. aware of plan to check lithium level on wednesday. per staff, flat. yes/no answers, erratic behaviors. med-compliant, examining staff badges and writing down names/information about them. not attending groups. appears to have slept well. Mental Status Exam Mental Status Exam Narrative: long tyler-haired wig, swinging hair about in the link. no PMA/PMR. junior project coordinator perative. speech nml rate, incr amount, nml loudness, nml tone, decr latency. thoughts wandering and over-inclusive of detail. affect full range, hyper- intense, non-labile, appearing happier than the situation would seem to call for. denies hypersexuality. no SI/HI/AVH expressed. Diagnostics Vital Signs (24Hr): Vital Signs - 24 hr 06/24/22 21:27 06/25/22 08:30 Temperature 97.8 F 97.2 F Pulse Rate 64 63 Respiratory Rate 16 18 Blood Pressure 118/59 L 112/64 Pulse Oximetry 98 99 Oxygen Delivery Method Room Air Room Air BMI result Body Mass Index 21.9 Labs Results: 06/18/22 13:36 06/18/22 13:35 Labs: Laboratory Results - last 48 hr 06/19/22 10:45 Hepatitis A IgM Ab Nonreactive Medications Medications Current Medications Acetaminophen (Acetaminophen 325 Mg Tablet) 650 mg PO Q6H PRN PRN Reason: Headache/Pain Mild Scale (1-3) Al Hydroxide/Mg Hydroxide (Magnesium Hydrox/Alum Hydrox 30 Ml Oral.Susp) 30 ml PO Q6H PRN PRN Reason: Heartburn/Nausea Clonidine HCl (Clonidine Hcl 0.1 Mg Tablet) 0.1 mg PO BEDTIME DALIA; Protocol Last Admin: 06/24/22 21:25 Dose: 0.1 mg Hydroxyzine HCl (Hydroxyzine Hcl 25 Mg Tablet) 25 mg PO Q6H PRN PRN Reason: Anxiety Last Admin: 06/18/22 23:30 Dose: 25 mg Ibuprofen (Ibuprofen 400 Mg Tablet) 400 mg PO Q8H PRN PRN Reason: Pain (Scale Score 4-6) [place] Carbonate ([place] Carbonate 300 Mg Capsule) 600 mg PO BID [facility] Last Admin: 06/25/22 08:48 Dose: 600 mg Lorazepam (Lorazepam 1 Mg Tablet) 1 mg PO Q6H PRN PRN Reason: agitation/anxiety/sleep Magnesium Hydroxide (Milk Of Magnesia 30 Ml Oral.Susp) 30 ml PO DAILY PRN PRN Reason: Constipation Olanzapine (Olanzapine Odt 10 Mg Tab.Rapdis) 10 mg TRANSLINGU Q6H PRN PRN Reason: agitation, anxiety Paliperidone (Paliperidone Er 9 Mg Tab.Er.24) 9 mg PO DAILY DAL[facility] Last Admin: 06/25/22 08:48 Dose: 9 mg Trazodone HCl (Trazodone Hcl 50 Mg Tablet) 50 mg PO BEDTIME PRN PRN Reason: Insomnia Last Admin: 06/18/22 23:30 Dose: 50 mg Allergies Allergies Allergy/AdvReac Type Severity Reaction Status Date / Time fish derived [fish] AdvReac Stomach Verified 06/18/22 13:12 Upset Assessment & Plan Assessment & Plan (1) Schizoaffective disorder, bipolar type: Status: Acute Code(s): F25.0 - Schizoaffective disorder, bipolar type Plan Mr. Tran is a 21 year-old male with hx of schizoaffective disorder who was brought via EMS to [place] [facility] due to pt presenting with agitation, engaging in risky behaviors (MHA suspect prostitution and breaking into store), walking naked on street, not sleeping or eating. utox positive for cannabinoids. Pt on unit attempting to run naked, disorganized speech, guarded. We discussed risks, benefits and alternative treatment options. Will start lithium for mood stabilization, continue paliperidone, will do STD testing. PLAN 06/19: continue paliperidone, start lithium 300mg po BID, ativan and olanzapine prn for agitation 06/20: Clonidine started at 0.1 mg QHS, as guanfacine is not on formulary. Pt is maintaining behavioral control, will be taken off 1:1 06/21: No med adjustments, pt isolative, will be on 5 min checks while wearing wig. 06/22: pt social, visible in milieu, dancing in the halls. continue current regimen. T/C lithium dosing increase. 06/23: labile, agitated, hypersexual. agrees to increase lithium to 600 BID. check labs 06/29. 06/24 increase paliperidone to 9mg po daily. continue lithium. 06/25: no changes. check lithium/renal fxn wednesday. I spent ___25___ minutes with the patient and/or on the patient floor today, greater than?50% of which was spent counseling/coordinating care. Reason for contiued inpatient stay Substantial Risk for: inability to function and rapid decompensation
[2022-06-25 17:49] VITALS: BMI 24.1
[2022-06-25 20:15] VITALS: BP 109/56; PULSE 73; RESP 16; TEMP 36.7; O2SAT 98
--- NOTE | 2022-06-26 07:50 | HO.PSYCHPN ---
Subjective Subjective Date of Service: 06/26/22 Reason For Visit: SI Subjective Notes: Conditional Voluntary Interim History: Pt cooperative on approach. He continues to present with hypersexual behaviors but not with excessive intensity. He reports feeling great. He reports he slept. He denies AH, seen at times self dialoguing. Pt pacing halls at times, suspicious of staff. He is able to be redirected. Medication Compliance: Yes Side effects from medications: No Review of Systems Review of Systems Yes all other systems are reviewed and are negative and Unobtainable due to mental status Mental Status Exam Mental Status Exam Narrative: long tyler-haired wig, swinging hair about in the link. no PMA/PMR. cooperative. speech nml rate, incr amount, nml loudness, nml tone, decr latency. thoughts wandering and over-inclusive of detail. affect full range, hyper-intense, non-labile, appearing happier than the situation would seem to call for. denies hypersexuality. no SI/HI/AVH expressed. Diagnostics Vital Signs (24Hr): Vital Signs - 24 hr 06/26/22 08:30 06/26/22 19:56 Temperature 97.8 F 97.8 F Pulse Rate 70 80 Respiratory Rate 20 Blood Pressure 110/59 L 100/61 Pulse Oximetry 100 100 Oxygen Delivery Method Room Air Room Air BMI result Body Mass Index 24.1 Labs Results: 06/18/22 13:36 06/18/22 13:35 Medications Medications Current Medications Acetaminophen (Acetaminophen 325 Mg Tablet) 650 mg PO Q6H PRN PRN Reason: Headache/Pain Mild Scale (1-3) Al Hydroxide/Mg Hydroxide (Magnesium Hydrox/Alum Hydrox 30 Ml Oral.Susp) 30 ml PO Q6H PRN PRN Reason: Heartburn/Nausea Clonidine HCl (Clonidine Hcl 0.1 Mg Tablet) 0.1 mg PO BEDTIME DALIA; Protocol Last Admin: 06/26/22 19:53 Dose: 0.1 mg Hydroxyzine HCl (Hydroxyzine Hcl 25 Mg Tablet) 25 mg PO Q6H PRN PRN Reason: Anxiety Last Admin: 06/18/22 23:30 Dose: 25 mg Ibuprofen (Ibuprofen 400 Mg Tablet) 400 mg PO Q8H PRN PRN Reason: Pain (Scale Score 4-6) [place] Carbonate ([place] Carbonate 300 Mg Capsule) 600 mg PO BID DALIA Last Admin: 06/26/22 19:53 Dose: 600 mg Lorazepam (Lorazepam 1 Mg Tablet) 1 mg PO Q6H PRN PRN Reason: agitation/anxiety/sleep Magnesium Hydroxide (Milk Of Magnesia 30 Ml Oral.Susp) 30 ml PO DAILY PRN PRN Reason: Constipation Olanzapine (Olanzapine Odt 10 Mg Tab.Rapdis) 10 mg TRANSLINGU Q6H PRN PRN Reason: agitation, anxiety Paliperidone (Paliperidone Er 9 Mg Tab.Er.24) 9 mg PO DAILY [facility] Last Admin: 06/26/22 08:55 Dose: 9 mg Trazodone HCl (Trazodone Hcl 50 Mg Tablet) 50 mg PO BEDTIME PRN PRN Reason: Insomnia Last Admin: 06/18/22 23:30 Dose: 50 mg Allergies Allergies Allergy/AdvReac Type Severity Reaction Status Date / Time fish derived [fish] AdvReac Stomach Verified 06/18/22 13:12 Upset Assessment & Plan Assessment & Plan (1) Schizoaffective disorder, bipolar type: Status: Acute Code(s): F25.0 - Schizoaffective disorder, bipolar type Plan Mr. Tran is a 21 year-old male with hx of schizoaffective disorder who was brought via EMS to [facility] [place] [facility] due to pt presenting with agitation, engaging in risky behaviors (MHA suspect prostitution and breaking into store), walking naked on street, not sleeping or eating. utox positive for cannabinoids. Pt on unit attempting to run naked, disorganized speech, guarded. We discussed risks, benefits and alternative treatment options. Will start lithium for mood stabilization, continue paliperidone, will do STD testing. PLAN 06/19: continue paliperidone, start lithium 300mg po BID, ativan and olanzapine prn for agitation 06/20: Clonidine started at 0.1 mg QHS, as guanfacine is not on formulary. Pt is maintaining behavioral control, will be taken off 1:1 06/21: No med adjustments, pt isolative, will be on 5 min checks while wearing wig. 06/22: pt social, visible in milieu, dancing in the halls. continue current regimen. T/C lithium dosing increase. 06/23: labile, agitated, hypersexual. agrees to increase lithium to 600 BID. check labs 06/29. 8/24 increase paliperidone to 9mg po daily. continue lithium. 06/25: no changes. check lithium/renal fxn wednesday. 06/26 continue current medications. I spent minutes with the patient and/or on the patient floor today, greater than?50% of which was spent counseling/coordinating care. Reason for contiued inpatient stay Substantial Risk for: inability to function
[2022-06-26 08:30] VITALS: BP 110/59; PULSE 70; RESP 20; TEMP 36.6; O2SAT 100
[2022-06-26] MEDS: Paliperidone ER 9 MG TAB.ER.24 PO (08:55)
[2022-06-26] MEDS: Lithium Carbonate 300 MG CAPSULE 600 MG PO ×2 (08:55→19:53)
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
[2022-06-26] MEDS: cloNIDine HCL 0.1 MG TABLET PO (19:53)
[2022-06-26 19:56] VITALS: BP 100/61; PULSE 80; TEMP 36.6; O2SAT 100
[2022-06-27] MEDS: Lithium Carbonate 300 MG CAPSULE 600 MG PO ×2 (08:02→20:44)
[2022-06-27] MEDS: Paliperidone ER 9 MG TAB.ER.24 PO (08:02)
--- NOTE | 2022-06-27 08:56 | HO.PSYCHPN ---
Subjective Subjective Date of Service: 06/27/22 Reason For Visit: SI Subjective Notes: Conditional Voluntary Interim History: Patient was seen and discussed in rounds today. Records and plans were reviewed. He continues to be on 5 minute checks when wearing a week and 15 minute checks otherwise. He is pacing, isolative. Very little to no insight. Some hypersexual behaviors. He states that he had a good day yesterday. Eating and sleeping adequately. No complaints of depression or anxiety. No SI. Appears to be responding internal stimuli and exhibiting indications of thought blocking. No complaints or side effects. No changes were made today Medication Compliance: Yes Side effects from medications: No Review of Systems Review of Systems Not very easy to assess completely Yes all other systems are reviewed and are negative Mental Status Exam Mental Status Exam Narrative: In today's visit he is alert, oriented and pleasant. Soft-spoken speech. Little eye contact. Affect is constricted. He is not too forthcoming but answers briefly to questions. No acute signs of psychosis observed but reported to be responding to internal stimuli. Thought processes are scant. Some thought blocking is present. No auditory or visual hallucinations admitted. No SI/HI. Cognitively he could not be assessed formally. Diagnostics Vital Signs (24Hr): Vital Signs - 24 hr 06/26/22 19:56 Temperature 97.8 F Pulse Rate 80 Blood Pressure 100/61 Pulse Oximetry 100 Oxygen Delivery Method Room Air BMI result Body Mass Index 24.1 Labs Results: 06/18/22 13:36 06/18/22 13:35 Medications Medications Current Medications Acetaminophen (Acetaminophen 325 Mg Tablet) 650 mg PO Q6H PRN PRN Reason: Headache/Pain Mild Scale (1-3) Al Hydroxide/Mg Hydroxide (Magnesium Hydrox/Alum Hydrox 30 Ml Oral.Susp) 30 ml PO Q6H PRN PRN Reason: Heartburn/Nausea Clonidine HCl (Clonidine Hcl 0.1 Mg Tablet) 0.1 mg PO BEDTIME DALIA; Protocol Last Admin: 06/26/22 19:53 Dose: 0.1 mg Hydroxyzine HCl (Hydroxyzine Hcl 25 Mg Tablet) 25 mg PO Q6H PRN PRN Reason: Anxiety Last Admin: 06/18/22 23:30 Dose: 25 mg Ibuprofen (Ibuprofen 400 Mg Tablet) 400 mg PO Q8H PRN PRN Reason: Pain (Scale Score 4-6) [place] Carbonate ([place] Carbonate 300 Mg Capsule) 600 mg PO BID DALIA Last Admin: 06/27/22 08:02 Dose: 600 mg Lorazepam (Lorazepam 1 Mg Tablet) 1 mg PO Q6H PRN PRN Reason: agitation/anxiety/sleep Magnesium Hydroxide (Milk Of Magnesia 30 Ml Oral.Susp) 30 ml PO DAILY PRN PRN Reason: Constipation Olanzapine (Olanzapine Odt 10 Mg Tab.Rapdis) 10 mg TRANSLINGU Q6H PRN PRN Reason: agitation, anxiety Paliperidone (Paliperidone Er 9 Mg Tab.Er.24) 9 mg PO DAILY [facility] Last Admin: 06/27/22 08:02 Dose: 9 mg Trazodone HCl (Trazodone Hcl 50 Mg Tablet) 50 mg PO BEDTIME PRN PRN Reason: Insomnia Last Admin: 06/18/22 23:30 Dose: 50 mg Allergies Allergies Allergy/AdvReac Type Severity Reaction Status Date / Time fish derived [fish] AdvReac Stomach Verified 06/18/22 13:12 Upset Assessment & Plan Assessment & Plan (1) Schizoaffective disorder, bipolar type: Status: Acute Code(s): F25.0 - Schizoaffective disorder, bipolar type Plan Mr. Tran is a 21 year-old male with hx of schizoaffective disorder who was brought via EMS [place] [facility] [place] due to pt presenting with agitation, engaging in risky behaviors (MHA suspect prostitution and breaking into store), walking naked on street, not sleeping or eating. utox positive for cannabinoids. Pt on unit attempting to run naked, disorganized speech, guarded. We discussed risks, benefits and alternative treatment options. Will start lithium for mood stabilization, continue paliperidone, will do STD testing. PLAN 06/19: continue paliperidone, start lithium 300mg po BID, ativan and olanzapine prn for agitation 06/20: Clonidine started at 0.1 mg QHS, as guanfacine is not on formulary. Pt is maintaining behavioral control, will be taken off 1:1 06/21: No med adjustments, pt isolative, will be on 5 min checks while wearing wig. 06/22: pt social, visible in milieu, dancing in the halls. continue current regimen. T/C lithium dosing increase. 06/23: labile, agitated, hypersexual. agrees to increase lithium to 600 BID. check labs 06/29. 06/24 increase paliperidone to 9mg po daily. continue lithium. 06/25: no changes. check lithium/renal fxn wednesday. 06/26 continue current medications. 06/27: Continue current regimen and plans I spent minutes with the patient and/or on the patient floor today, greater than?50% of which was spent counseling/coordinating care. Reason for contiued inpatient stay Substantial Risk for: med/psych decompensation
[2022-06-27 09:00] VITALS: BP 107/58; PULSE 67; RESP 16; TEMP 36.1; O2SAT 97
[2022-06-27] MEDS: cloNIDine HCL 0.1 MG TABLET PO (20:44)
[2022-06-27 20:46] VITALS: BP 122/69; PULSE 77; TEMP 36.6; O2SAT 100
[2022-06-28 08:00] VITALS: BP 114/58; PULSE 85; RESP 16; TEMP 36.6; O2SAT 100
--- NOTE | 2022-06-28 08:01 | HO.PSYCHPN ---
Subjective Subjective Date of Service: 06/28/22 Reason For Visit: SI Subjective Notes: Conditional Voluntary Healthcare Proxy: No Guardianship: No Medical Problems Affecting Mental Status: No Interim History: Patient was seen and discussed in rounds today. Records and plans were reviewed. He continues to be on 5 minute checks when wearing a week and 15 minute checks otherwise. Continues to be isolative, pacing and responding to internal stimuli. He is guarded. He is med compliant. No complaints or side effects. No SI. Eating and sleeping adequately. No changes were made today Medication Compliance: Yes Side effects from medications: No Review of Systems Review of Systems Not very easy to assess completely Yes all other systems are reviewed and are negative Diagnostics Vital Signs (24Hr): Vital Signs - 24 hr 06/27/22 09:00 06/27/22 20:46 Temperature 97.0 F 97.9 F Pulse Rate 67 77 Respiratory Rate 16 Blood Pressure 107/58 L 122/69 Pulse Oximetry 97 100 Oxygen Delivery Method Room Air Room Air BMI result Body Mass Index 24.1 Labs Results: 06/18/22 13:36 06/18/22 13:35 Medications Medications Current Medications Acetaminophen (Acetaminophen 325 Mg Tablet) 650 mg PO Q6H PRN PRN Reason: Headache/Pain Mild Scale (1-3) Al Hydroxide/Mg Hydroxide (Magnesium Hydrox/Alum Hydrox 30 Ml Oral.Susp) 30 ml PO Q6H PRN PRN Reason: Heartburn/Nausea Clonidine HCl (Clonidine Hcl 0.1 Mg Tablet) 0.1 mg PO BEDTIME DALIA; Protocol Last Admin: 06/27/22 20:44 Dose: 0.1 mg Hydroxyzine HCl (Hydroxyzine Hcl 25 Mg Tablet) 25 mg PO Q6H PRN PRN Reason: Anxiety Last Admin: 06/18/22 23:30 Dose: 25 mg Ibuprofen (Ibuprofen 400 Mg Tablet) 400 mg PO Q8H PRN PRN Reason: Pain (Scale Score 4-6) [place] Carbonate ([place] Carbonate 300 Mg Capsule) 600 mg PO BID DALIA Last Admin: 06/27/22 20:44 Dose: 600 mg Lorazepam (Lorazepam 1 Mg Tablet) 1 mg PO Q6H PRN PRN Reason: agitation/anxiety/sleep Magnesium Hydroxide (Milk Of Magnesia 30 Ml Oral.Susp) 30 ml PO DAILY PRN PRN Reason: Constipation Olanzapine (Olanzapine Odt 10 Mg Tab.Rapdis) 10 mg TRANSLINGU Q6H PRN PRN Reason: agitation, anxiety Paliperidone (Paliperidone Er 9 Mg Tab.Er.24) 9 mg PO DAILY DALIA Last Admin: 06/27/22 08:02 Dose: 9 mg Trazodone HCl (Trazodone Hcl 50 Mg Tablet) 50 mg PO BEDTIME PRN PRN Reason: Insomnia Last Admin: 06/18/22 23:30 Dose: 50 mg Allergies Allergies Allergy/AdvReac Type Severity Reaction Status Date / Time fish derived [fish] AdvReac Stomach Verified 06/18/22 13:12 Upset Assessment & Plan Assessment & Plan (1) Schizoaffective disorder, bipolar type: Status: Acute Code(s): F25.0 - Schizoaffective disorder, bipolar type Plan Mr. Tran is a 21 year-old male with hx of schizoaffective disorder who was brought via EMS to [facility] [place] [facility] due to pt presenting with agitation, engaging in risky behaviors (MHA suspect prostitution and breaking into store), walking naked on street, not sleeping or eating. utox positive for cannabinoids. Pt on unit attempting to run naked, disorganized speech, guarded. We discussed risks, benefits and alternative treatment options. Will start lithium for mood stabilization, continue paliperidone, will do STD testing. PLAN 06/19: continue paliperidone, start lithium 300mg po BID, ativan and olanzapine prn for agitation 06/20: Clonidine started at 0.1 mg QHS, as guanfacine is not on formulary. Pt is maintaining behavioral control, will be taken off 1:1 06/21: No med adjustments, pt isolative, will be on 5 min checks while wearing wig. 06/22: pt social, visible in milieu, dancing in the halls. continue current regimen. T/C lithium dosing increase. 06/23: labile, agitated, hypersexual. agrees to increase lithium to 600 BID. check labs 06/29. 06/24 increase paliperidone to 9mg po daily. continue lithium. 06/25: no changes. check lithium/renal fxn wednesday. 06/26 continue current medications. 06/27: Continue current regimen and plans 06/28: Continue current regimen and plans I spent minutes with the patient and/or on the patient floor today, greater than?50% of which was spent counseling/coordinating care. Reason for contiued inpatient stay Substantial Risk for: med/psych decompensation
[2022-06-28] MEDS: Lithium Carbonate 300 MG CAPSULE 600 MG PO ×2 (08:11→20:45)
[2022-06-28] MEDS: Paliperidone ER 9 MG TAB.ER.24 PO (08:11)
[2022-06-28] MEDS: cloNIDine HCL 0.1 MG TABLET PO (20:45)
[2022-06-28 21:00] VITALS: BP 114/55; PULSE 60; RESP 16; TEMP 36.6; O2SAT 99
[2022-06-29] MEDS: Lithium Carbonate 300 MG CAPSULE 600 MG PO ×2 (08:33→20:14)
[2022-06-29] MEDS: Paliperidone ER 9 MG TAB.ER.24 PO (08:33)
--- NOTE | 2022-06-29 08:49 | P.PNPSI_ITS ---
Subjective Subjective Date of Service: 06/29/22 Reason For Visit: SI Subjective Notes: Conditional Voluntary Interim History: Pt continues to present as labile, although less hypersexual. Pt reports he is very happy. He reports he lost weight and this mean that he can wear tighter clothes and show my curves! Pt reports he has been sleeping and eating well. He reports he feels calmer with medications. He asks if he can be discharged soon. We discussed planning for this week but waiting for collateral info from . Pt easily labile, crying loudly because he wants to be discharged soon. Medication Compliance: Yes Side effects from medications: No Review of Systems Review of Systems Not very easy to assess completely Yes all other systems are reviewed and are negative and Unobtainable due to mental status Mental Status Exam Mental Status Exam Narrative: long tyler-haired wig, swinging hair about in the link. PMA of agitated p acing. cooperative. speech incr rate, amount, loudness, nml tone, decr latency. thoughts wandering, circumstantial. affect full range, hyper-intense, labile. no SI/HI/AVH expressed. Diagnostics Vital Signs (24Hr): Vital Signs - 24 hr 06/29/22 09:10 06/29/22 20:00 06/30/22 08:18 Temperature 98.0 F 98.3 F 98.3 F Pulse Rate 72 80 100 Respiratory Rate 20 16 17 Blood Pressure 109/66 112/49 L 139/63 Pulse Oximetry 98 99 99 Oxygen Delivery Method Room Air Room Air Room Air BMI result Body Mass Index 24.1 Labs Results: 06/18/22 13:36 06/29/22 08:29 Labs: Laboratory Results - last 48 hr 06/29/22 06/29/22 08:29 08:29 Sodium 139 Potassium 4.5 D Chloride 105 Carbon Dioxide 26 Anion Gap 13 BUN 9 Creatinine 0.90 Estim Creat Clear Calc 121.3 Estimated GFR > 60 Random Glucose 88 Calcium 9.3 Total Bilirubin 0.8 Direct Bilirubin 0.3 AST 13 D ALT 15 Alkaline Phosphatase 60 Total Protein 6.1 L Albumin 3.9 [place] 0.84 Medications Medications Current Medications Acetaminophen (Acetaminophen 325 Mg Tablet) 650 mg PO Q6H PRN PRN Reason: Headache/Pain Mild Scale (1-3) Al Hydroxide/Mg Hydroxide (Magnesium Hydrox/Alum Hydrox 30 Ml Oral.Susp) 30 ml PO Q6H PRN PRN Reason: Heartburn/Nausea Clonidine HCl (Clonidine Hcl 0.1 Mg Tablet) 0.1 mg PO BEDTIME DALIA; Protocol Last Admin: 06/29/22 20:14 Dose: 0.1 mg Hydroxyzine HCl (Hydroxyzine Hcl 25 Mg Tablet) 25 mg PO Q6H PRN PRN Reason: Anxiety Last Admin: 06/18/22 23:30 Dose: 25 mg Ibuprofen (Ibuprofen 400 Mg Tablet) 400 mg PO Q8H PRN PRN Reason: Pain (Scale Score 4-6) [place] Carbonate ([place] Carbonate 300 Mg Capsule) 600 mg PO BID DALIA Last Admin: 06/30/22 08:31 Dose: 600 mg Magnesium Hydroxide (Milk Of Magnesia 30 Ml Oral.Susp) 30 ml PO DAILY PRN PRN Reason: Constipation Olanzapine (Olanzapine Odt 10 Mg Tab.Rapdis) 10 mg TRANSLINGU Q6H PRN PRN Reason: agitation, anxiety Paliperidone (Paliperidone Er 9 Mg Tab.Er.24) 9 mg PO DAILY [facility] Last Admin: 06/30/22 08:31 Dose: 9 mg Trazodone HCl (Trazodone Hcl 50 Mg Tablet) 50 mg PO BEDTIME PRN PRN Reason: Insomnia Last Admin: 06/18/22 23:30 Dose: 50 mg Allergies Allergies Allergy/AdvReac Type Severity Reaction Status Date / Time fish derived [fish] AdvReac Stomach Verified 06/18/22 13:12 Upset Assessment & Plan Assessment & Plan (1) Schizoaffective disorder, bipolar type: Status: Acute Code(s): F25.0 - Schizoaffective disorder, bipolar type Plan Mr. Tran is a 21 year-old male with hx of schizoaffective disorder who was brought via EMS to [facility] due to pt presenting with agitation, engaging in risky behaviors ([facility] suspect prostitution and breaking into store), walking naked on street, not sleeping or eating. utox positive for cannabinoids. Pt on unit attempting to run naked, disorganized speech, guarded. We discussed risks, benefits and alternative treatment options. Will start lithium for mood stabilization, continue paliperidone, will do STD testing. PLAN 06/19: continue paliperidone, start lithium 300mg po BID, ativan and olanzapine prn for agitation 06/20: Clonidine started at 0.1 mg QHS, as guanfacine is not on formulary. Pt is maintaining behavioral control, will be taken off 1:1 06/21: No med adjustments, pt isolative, will be on 5 min checks while wearing wig. 06/22: pt social, visible in milieu, dancing in the halls. continue current regimen. T/C lithium dosing increase. 06/23: labile, agitated, hypersexual. agrees to increase lithium to 600 BID. c heck labs 06/29. 06/24 increase paliperidone to 9mg po daily. continue lithium. 06/25: no changes. check lithium/renal fxn wednesday. 06/26 continue current medications. 06/27: Continue current regimen and plans 06/28: Continue current regimen and plans 06/29 continue current medications. I spent minutes with the patient and/or on the patient floor today, greater than?50% of which was spent counseling/coordinating care. Reason for contiued inpatient stay Substantial Risk for: inability to function
[2022-06-29 08:54] LABS: Lithium 0.84 mmol/L (0.60-1.20)
[2022-06-29 09:01] LABS: Alanine Aminotransferase 15 U/L (0-40); Albumin Level 3.9 g/dL (3.5-5.0); Alkaline Phosphatase 60 U/L (39-117); Anion Gap 13 (12-20); Aspartate Amino Transferase 13 U/L (5-37); Bilirubin Direct 0.3 mg/dL (0.0-0.5); Bilirubin Total 0.8 mg/dL (0.0-1.0); Blood Urea Nitrogen 9 mg/dL (9-16); Calcium 9.3 mg/dL (8.4-10.2); Carbon Dioxide 26 mmol/L (22-29); Chloride 105 mmol/L (96-108); Creatinine Clr Calc Pharmacy 121.3; Estimated Glomerular Filt Rate > 60; Glucose Random 88 mg/dL (60-115); Potassium 4.5 mmol/L (3.3-5.1); Sodium 139 mmol/L (135-145); Total Protein 6.1 g/dL (6.5-8.0)
[2022-06-29 09:10] VITALS: BP 109/66; PULSE 72; RESP 20; TEMP 36.7; O2SAT 98
[2022-06-29 20:00] VITALS: BP 112/49; PULSE 80; RESP 16; TEMP 36.8; O2SAT 99
[2022-06-29] MEDS: cloNIDine HCL 0.1 MG TABLET PO (20:14)
[2022-06-30 08:18] VITALS: BP 139/63; PULSE 100; RESP 17; TEMP 36.8; O2SAT 99
[2022-06-30] MEDS: Lithium Carbonate 300 MG CAPSULE 600 MG PO ×2 (08:31→20:25)
[2022-06-30] MEDS: Paliperidone ER 9 MG TAB.ER.24 PO (08:31)
--- NOTE | 2022-06-30 15:49 | P.PNPSI_ITS ---
Subjective Subjective Date of Service: 06/30/22 Reason For Visit: SI Subjective Notes: Conditional Voluntary Interim History: Pt presents less labile. He reports sleeping and eating well- which was confirmed by nursing. Pt reports he hopes to be discharged soon as he wants to go back to work. He denies SI/HI. Much less suspicious or paranoid. Pt taking medications as prescribed. More appropriate with peers and staff. Medication Compliance: Yes Review of Systems Review of Systems Not very easy to assess completely Yes all other systems are reviewed and are negative and Unobtainable due to mental status Mental Status Exam Mental Status Exam Narrative: Appearance: casually groomed, fair hygiene in NAD Behavior:cooperative psychomotor: no agitation or retardation noted Speech:clear, normal rate/rhythm/volume, spontaneous Thought process:linear Thought content:no overt delusions, hoping to be discharged soon Mood: great Affect: slightly expansive SI:none HI:none VH/AH:none Delusions:much less paranoid Insight/judgment:improving x 2. Memory/cog: alert, oriented x 3. Diagnostics Vital Signs (24Hr): Vital Signs - 24 hr 06/29/22 20:00 06/30/22 08:18 Temperature 98.3 F 98.3 F Pulse Rate 80 100 Respiratory Rate 16 17 Blood Pressure 112/49 L 139/63 Pulse Oximetry 99 99 Oxygen Delivery Method Room Air Room Air BMI result Body Mass Index 24.1 Labs Results: 06/18/22 13:36 06/29/22 08:29 Labs: Laboratory Results - last 48 hr 06/29/22 06/29/22 08:29 08:29 Sodium 139 Potassium 4.5 D Chloride 105 Carbon Dioxide 26 Anion Gap 13 BUN 9 Creatinine 0.90 Estim Creat Clear Calc 121.3 Estimated GFR > 60 Random Glucose 88 Calcium 9.3 Total Bilirubin 0.8 Direct Bilirubin 0.3 AST 13 D ALT 15 Alkaline Phosphatase 60 Total Protein 6.1 L Albumin 3.9 [place] 0.84 Medications Medications Current Medications Acetaminophen (Acetaminophen 325 Mg Tablet) 650 mg PO Q6H PRN PRN Reason: Headache/Pain Mild Scale (1-3) Al Hydroxide/Mg Hydroxide (Magnesium Hydrox/Alum Hydrox 30 Ml Oral.Susp) 30 ml PO Q6H PRN PRN Reason: Heartburn/Nausea Clonidine HCl (Clonidine Hcl 0.1 Mg Tablet) 0.1 mg PO BEDTIME DALIA; Protocol Last Admin: 06/29/22 20:14 Dose: 0.1 mg Hydroxyzine HCl (Hydroxyzine Hcl 25 Mg Tablet) 25 mg PO Q6H PRN PRN Reason: Anxiety Last Admin: 06/18/22 23:30 Dose: 25 mg Ibuprofen (Ibuprofen 400 Mg Tablet) 400 mg PO Q8H PRN PRN Reason: Pain (Scale Score 4-6) [place] Carbonate ([place] Carbonate 300 Mg Capsule) 600 mg PO BID DALIA Last Admin: 06/30/22 08:31 Dose: 600 mg Magnesium Hydroxide (Milk Of Magnesia 30 Ml Oral.Susp) 30 ml PO DAILY PRN PRN Reason: Constipation Olanzapine (Olanzapine Odt 10 Mg Tab.Rapdis) 10 mg TRANSLINGU Q6H PRN PRN Reason: agitation, anxiety Paliperidone (Paliperidone Er 9 Mg Tab.Er.24) 9 mg PO DAILY DALIA Last Admin: 06/30/22 08:31 Dose: 9 mg Trazodone HCl (Trazodone Hcl 50 Mg Tablet) 50 mg PO BEDTIME PRN PRN Reason: Insomnia Last Admin: 06/18/22 23:30 Dose: 50 mg Allergies Allergies Allergy/AdvReac Type Severity Reaction Status Date / Time fish derived [fish] AdvReac Stomach Verified 06/18/22 13:12 Upset Assessment & Plan Assessment & Plan (1) Schizoaffective disorder, bipolar type: Status: Acute Code(s): F25.0 - Schizoaffective disorder, bipolar type Plan Mr. Tran is a 21 year-old male with hx of schizoaffective disorder who was brought via EMS to [facility] ED due to pt presenting with agitation, engaging in risky behaviors ([facility] suspect prostitution and breaking into store), walking naked on street, not sleeping or eating. utox positive for cannabinoids. Pt on unit attempting to run naked, disorganized speech, guarded. We discussed risks, benefits and alternative treatment options. Will start lithium for mood stabilization, continue paliperidone, will do STD testing. PLAN 06/19: continue paliperidone, start lithium 300mg po BID, ativan and olanzapine prn for agitation 06/20: Clonidine started at 0.1 mg QHS, as guanfacine is not on formulary. Pt is maintaining behavioral control, will be taken off 1:1 06/21: No med adjustments, pt isolative, will be on 5 min checks while wearing wig. 06/22: pt social, visible in milieu, dancing in the halls. continue current regimen. T/C lithium dosing increase. 06/23: labile, agitated, hypersexual. agrees to increase lithium to 600 BID. check labs 06/29. 06/24 increase paliperidone to 9mg po daily. continue lithium. 06/25: no changes. check lithium/renal fxn wednesday. 06/26 continue current medications. 06/27: Continue current regimen and plans 06/28: Continue current regimen and plans 06/29 continue current medications. 06/30 continue current meds, d/c on 07/01. I spent __25____ minutes with the patient and/or on the patient floor today, greater than?50% of which was spent counseling/coordinating care. Reason for contiued inpatient stay Substantial Risk for: stable for discharge
[2022-06-30 20:25] VITALS: BP 102/59; PULSE 68; RESP 16; TEMP 36.6; O2SAT 98
[2022-06-30] MEDS: cloNIDine HCL 0.1 MG TABLET PO (20:25)
[2022-07-01 06:00] VITALS: BP 114/56; PULSE 101; RESP 16; TEMP 36.7; O2SAT 99
[2022-07-01] MEDS: Paliperidone ER 9 MG TAB.ER.24 PO (08:23)
[2022-07-01] MEDS: Lithium Carbonate 300 MG CAPSULE 600 MG PO ×2 (08:23→20:29)
--- NOTE | 2022-07-01 10:13 | HO.PSYCHPN ---
Subjective Subjective Date of Service: 07/01/22 Reason For Visit: SI Subjective Notes: Conditional Voluntary Interim History: Pt presents as calm, much less labile and dysphoric. Pt reports sleeping and eating well. He denies any side effects with medications. He denies SI/HI. No overt delusional or hypersexual comments noted. No behavioral concerns. Plan for d/c tomorrow. Medication Compliance: Yes Side effects from medications: No Review of Systems Review of Systems Not very easy to assess completely Yes all other systems are reviewed and are negative and Unobtainable due to mental status Mental Status Exam Mental Status Exam Narrative: Appearance: casually groomed, fair hygiene in NAD Behavior:cooperative psychomotor: no agitation or retardation noted Speech:clear, normal rate/rhythm/volume, spontaneous Thought process:linear Thought content:no overt delusions, hoping to be discharged soon Mood: great Affect: slightly expansive SI:none HI:none VH/AH:none Delusions:much less paranoid Insight/judgment:improving x 2. Memory/cog: alert, oriented x 3. Diagnostics Vital Signs (24Hr): Vital Signs - 24 hr 07/01/22 20:20 07/02/22 08:08 Temperature 98.1 F 97.6 F Pulse Rate 73 77 Respiratory Rate 16 16 Blood Pressure 98/54 L 118/57 L Pulse Oximetry 99 100 Oxygen Delivery Method Room Air Room Air BMI result Body Mass Index 24.1 Labs Results: 06/18/22 13:36 06/29/22 08:29 Medications Medications Current Medications Acetaminophen (Acetaminophen 325 Mg Tablet) 650 mg PO Q6H PRN PRN Reason: Headache/Pain Mild Scale (1-3) Al Hydroxide/Mg Hydroxide (Magnesium Hydrox/Alum Hydrox 30 Ml Oral.Susp) 30 ml PO Q6H PRN PRN Reason: Heartburn/Nausea Clonidine HCl (Clonidine Hcl 0.1 Mg Tablet) 0.1 mg PO BEDTIME DALIA; Protocol Last Admin: 07/01/22 20:29 Dose: 0.1 mg Hydroxyzine HCl (Hydroxyzine Hcl 25 Mg Tablet) 25 mg PO Q6H PRN PRN Reason: Anxiety Last Admin: 06/18/22 23:30 Dose: 25 mg Ibuprofen (Ibuprofen 400 Mg Tablet) 400 mg PO Q8H PRN PRN Reason: Pain (Scale Score 4-6) [place] Carbonate ([place] Carbonate 300 Mg Capsule) 600 mg PO BID DALIA Last Admin: 07/02/22 08:16 Dose: 600 mg Magnesium Hydroxide (Milk Of Magnesia 30 Ml Oral.Susp) 30 ml PO DAILY PRN PRN Reason: Constipation Olanzapine (Olanzapine Odt 10 Mg Tab.Rapdis) 10 mg TRANSLINGU Q6H PRN PRN Reason: agitation, anxiety Paliperidone (Paliperidone Er 9 Mg Tab.Er.24) 9 mg PO DAILY [facility] Last Admin: 07/02/22 08:17 Dose: 9 mg Trazodone HCl (Trazodone Hcl 50 Mg Tablet) 50 mg PO BEDTIME PRN PRN Reason: Insomnia Last Admin: 06/18/22 23:30 Dose: 50 mg Allergies Allergies Allergy/AdvReac Type Severity Reaction Status Date / Time fish derived [fish] AdvReac Stomach Verified 06/18/22 13:12 Upset Assessment & Plan Assessment & Plan (1) Schizoaffective disorder, bipolar type: Status: Acute Code(s): F25.0 - Schizoaffective disorder, bipolar type Plan Mr. Tran is a 21 year-old male with hx of schizoaffective disorder who was brought via EMS to [facility] [place] [facility] due to pt presenting with agitation, engaging in risky behaviors ([facility] suspect prostitution and breaking into store), walking naked on street, not sleeping or eating. utox positive for cannabinoids. Pt on unit attempting to run naked, disorganized speech, guarded. We discussed risks, benefits and alternative treatment options. Will start lithium for mood stabilization, continue paliperidone, will do STD testing. PLAN 06/19: continue paliperidone, start lithium 300mg po BID, ativan and olanzapine prn for agitation 06/20: Clonidine started at 0.1 mg QHS, as guanfacine is not on formulary. Pt is maintaining behavioral control, will be taken off 1:1 06/21: No med adjustments, pt isolative, will be on 5 min checks while wearing wig. 06/22: pt social, visible in milieu, dancing in the halls. continue current regimen. T/C lithium dosing increase. 06/23: labile, agitated, hypersexual. agrees to increase lithium to 600 BID. check labs 06/29. 06/24 increase paliperidone to 9mg po daily. continue lithium. 06/25: no changes. check lithium/renal fxn wednesday. 06/26 continue current medications. 06/27: Continue current regimen and plans 06/28: Continue current regimen and plans 06/29 continue current medications. 06/30 continue current meds, d/c on 07/01. 07/01 continue current meds, planned dc changed to 07/02. in agreement and will sampler pickup pt. I spent minutes with the patient and/or on the patient floor today, greater than?50% of which was spent counseling/coordinating care. Reason for contiued inpatient stay Substantial Risk for: stable for discharge
[2022-07-01 20:20] VITALS: BP 98/54; PULSE 73; RESP 16; TEMP 36.7; O2SAT 99
[2022-07-01] MEDS: cloNIDine HCL 0.1 MG TABLET PO (20:29)
--- NOTE | 2022-07-01 23:26 | PC.NURSE ---
Pt dns depression, anxiety, safety concerns/AH/VH/SI/HI, pain. Responds appropriately to questions and looks intently at mobility developer. Pt is A&O, INAD, pleasant and cooperative, medication adherent. Stayed in room during shift.
[2022-07-02 08:08] VITALS: BP 118/57; PULSE 77; RESP 16; TEMP 36.4; O2SAT 100
[2022-07-02] MEDS: Lithium Carbonate 300 MG CAPSULE 600 MG PO (08:16)
[2022-07-02] MEDS: Paliperidone ER 9 MG TAB.ER.24 PO (08:17)
--- NOTE | 2022-07-02 10:24 | P.DS_ITS ---
DS: Providers Provider Date of Service: 07/02/22 Date of admission: 06/18/22 21:04 Primary care physician: Unknown Physician DS: Diagnosis Discharge Diagnosis (1) Schizoaffective disorder, bipolar type: Status: Acute DS: Medications Discharge Medications Home Medications: Home Medications Medication Instructions Recorded Confirmed ibuprofen 400 mg Q8-10H PRN Pain (Scale 06/18/22 06/18/22 Score 4-6) Previous Rx's Medication Instructions Recorded clonidine HCl 0.1 mg tablet 0.1 mg PO BEDTIME #30 tabs 07/02/22 lithium carbonate 600 mg capsule 600 mg PO BID #60 caps 07/02/22 paliperidone 9 mg tablet,extended 9 mg PO DAILY #30 tabs 07/02/22 release 24 hr (Invega) Mental Status Exam Mental Status Exam Narrative: Appearance: casually groomed, fair hygiene in NAD Behavior:cooperative psychomotor: no agitation or retardation noted Speech:clear, normal rate/rhythm/volume, spontaneous Thought process:linear Thought content:no overt delusions, hoping to be discharged soon Mood: great Affect: slightly expansive SI:none HI:none VH/AH:none Delusions:much less paranoid Insight/judgment:improving x 2. Memory/cog: alert, oriented x 3. Data Data Completed and Pending Completed studies during hospitalization [Text1]: 06/29/22 06/29/22 08:29 08:29 Sodium 139 Potassium 4.5 D Chloride 105 Carbon Dioxide 26 Anion Gap 13 BUN 9 Creatinine 0.90 Estim Creat Clear Calc 121.3 Estimated GFR > 60 Random Glucose 88 Calcium 9.3 Total Bilirubin 0.8 Direct Bilirubin 0.3 AST 13 D ALT 15 Alkaline Phosphatase 60 Total Protein 6.1 L Albumin 3.9 [place] 0.84 DS: Summary Hospital Course Hospital Course: Subjective Notes: Conditional Voluntary Narrative: Mr. Tran is a 21 year-old male with hx of Bipolar Disorder versus Schizoaffective disorder who was brought via EMS after being evaluated by [facility] after [facility] staff called them reporting that pt had stopped medications (paliperidone, guanfacine) about one month and has presented as agitated, walking naked down the street stating he wanted to be a stripper, breaking into store (one week ago) and was arrested. In the ED, his utox is positive for cannabinoids. On the unit, he tore up clothing in shower, was running around without clothes. He received PRN medication of olanzapine with ativan with good effect. Today, pt in bed. He is on a one to one due to inappropriate sexual behaviors and intrusiveness. Pt covers his face with blanket and turns around to avoid further conversation with this screenplay writer. He reports he does not know why he is here. Although he does report that he was not eating I was not hungry, then states he thinks this is reason for being in the hospital. When asked about incident of walking naked on street and here on the unit, patient states that's not true!. He denies VH/AH but appears internally preoccupied. He denies SI/HI. He reports difficulty sleeping prior to coming to the hospital. Past Psychiatric History: Inpatient:unknown OP: Psychiatrist Dr. White ([phone]); Lucia Crabtree (from [employer]) Kathrin Brady [phone] DCF workerRenaldo [phone] ? Past medication trials: paliperidone, guanfacine Medical Evaluation Reviewed: Yes HOSPITAL COURSE On the unit, Pt was admitted on a CV and placed on 15 minutes checks for safety. Pt presented as paranoid, disorganized, hypersexual, labile. After discussing risks, benefits and alternative treatment options, pt agreed to start lithium continue paliperidone. His affect gradually presented as less paranoid, less labile and less hypersexual. He denied SI/HI. His sleep improved significantly. He showed slightly increase insight into psychiatric symptoms and need for ongoing psych tx and medications. Collateral information from reported that pt appeared in much improved condition and denied safety concerns at time of discharged. Status at Discharge Cognitive/behavioral status at discharge: Pt with brighter, much less labile, less paranoid. No hyper sexual behaviors. No SI/HI. improved sleep and appetite. Less AH/VH. No signs of aggression towards self or others. future oriented. Functional status at discharge: independent ambulation Overall status at discharge: patient is progressing back to baseline Time Spent with Patient Time attestation: Total time spent providing and/or coordinating discharge services: Discharge Plan Discharge Patient Disposition: Home Health Service Discharge Diagnosis: schizoaffective disorder bipolar type Referrals: [facility] [Physician] - 1 Week Discharge Medications: New clonidine HCl 0.1 mg Tablet 0.1 mg PO BEDTIME Qty: 30 0RF Protocol: Hold for SBP< HOLD for SBP < : 90 lithium carbonate 600 mg capsule 600 mg PO BID Qty: 60 0RF paliperidone 6 mg tablet extended release 24hr 6 mg PO QAM Qty: 30 0RF Continued ibuprofen 400 mg Q8-10H PRN (Reason: Pain (Scale Score 4-6)) Discontinued paliperidone [Invega] 3 mg Tablet Extended Release 24hr 6 mg PO DAILY guanfacine 1 mg Tablet 1 mg PO BEDTIME Discharge Orders: Discharge Order (Routine); Ordered 07/02/22 Ordered By: Le Pollack Diet: Regular diet Activity on Discharge: As tolerated Stand Alone Forms: Patient Portal Discharge page, Community Support Care Plan Goals: 1. Maintain mood 2. No SI/HI 3. No hypersexual behaviors, or delusions. Health Concerns: Follow up with PCP Plan of Treatment: 1. Take medications as prescribed 2. Go to nearest ED or call 911 in event of emergency Assessment: Pt much less labile, no hypersexual behaviors, No SI/HI. No overt delusional content noted or reported. No signs of aggression towards self or others. Discharge Date/Time: 07/02/22 11:21
== END 2022-07-02 11:21 | disposition home health service (06) | DRG 750 ==
LOC: HO.ED 20:05 → HO.PADLT16 21:17
PROVIDERS: Physician Assistant; Registered Nurse; Social Worker; Admitting Provider Psychiatry & Neurology Psychiatry; Emergency Provider Emergency Medicine Emergency Medical Services; Visit Provider Psychiatry & Neurology Psychiatry
DX: F25.0 Schizoaffective disorder, bipolar type (principal); R45.851 Suicidal ideations; Z20.822 Contact with and (suspected) exposure to COVID-19; Z91.013 Allergy to seafood; Z79.899 Other long term (current) drug therapy
CPT/HCPCS: 36415; 80048; 80053; 80061; 80076; 80178; 80307; 82077; 82607; 82746; 83036; 83735; 84439; 84443; 85025; 86704; 86706; 86709; 86780; 86803; 87340; 87389; 87635; 93005; 99285

== ENCOUNTER 2022-11-27 12:37 | Inpatient (IN) | payer OTHER, SELFPAY ==
[2022-11-27 12:46] VITALS: BP 132/84; PULSE 95; O2SAT 96; BMI 22.0
--- NOTE | 2022-11-27 12:47 | ED_ITS ---
HPI - General Adult General Chief complaint: Psychiatric Symptoms Stated complaint: Crisis per EMS Time Seen by Provider: 11/27/22 12:46 Source: patient and EMS Mode of arrival: EMS Limitations: no limitations History of Present Illness HPI narrative: Patient is a 22 year old assigned male at with a history of bipolar disorder presenting to the emergency department today on a section 12. Patient's skilled nursing staff states that the patient has been non compliant with his medications and he is acutely manic. Patient denies any dizziness, lightheadedness, abdominal pain, nausea, vomiting, fever, chills, blurry vision, double vision, loss of vision, chest pain, difficulty breathing, shortness of breath, back pain, night sweats, pain with urination, increased urinary frequency, increased urinary urgency, blood in his urine or stool, syncope or a near syncopal episode, recent trauma or falls, bowel incontinence, bladder incontinence, bowel retention, bladder retention, or any other complaints at this time. Onset (ago): day(s) Severity: mild Relieving factors: none Exacerbating factors: none Associated symptoms: denies other symptoms Treatments prior to arrival: none Related Data Home Medications Medication Instructions Recorded Confirmed divalproex 500 mg tablet,delayed 1 tab PO BID 11/27/22 11/27/22 release guanfacine 1 mg tablet 1 tab PO BEDTIME 11/27/22 11/27/22 hydroxyzine pamoate 50 mg capsule 1 cap PO TID 11/27/22 11/27/22 melatonin 3 mg tablet 1 tab PO BEDTIME 11/27/22 11/27/22 olanzapine 20 mg tablet 1 tab PO BEDTIME 11/27/22 11/27/22 olanzapine 5 mg tablet 1 tab PO BEDTIME 11/27/22 11/27/22 Allergies Allergy/AdvReac Type Severity Reaction Status Date / Time fish derived [fish] AdvReac Stomach Verified 06/18/22 13:12 Upset Review of Systems Constitutional: Constitutional: Reports no additional constitutional compl aints, Denies chills, Denies fever(s) and Denies night sweats Eyes: Eyes: Reports no additional eye complaints, Denies blurry vision, Denies change in vision, Denies diplopia, Denies eye discharge, Denies loss of vision and Denies eye pain ENT: Denies dizziness Cardiovascular: Cardiovascular: Reports no additional cardiovascular complaints, Denies chest pain, Denies lightheadedness, Denies Loss of Consciousness and Denies dyspnea Respiratory: Respiratory: Reports no additional respiratory complaints and Denies dyspnea Gastrointestinal: Gastrointestinal: Reports no additional gastrointestinal complaints, Denies abdominal pain, Denies melena, Denies hematochezia, Denies change in bowel habits and Denies change in stool character Genitourinary: Genitourinary: Reports no additional male genitourinary complaints, Denies hematuria, Denies oliguria, Denies difficulty urinating, Denies dysuria, Denies urinary frequency, Denies urinary hesitancy, Denies urinary incontinence and Denies urinary urgency Musculoskeletal: Musculoskeletal: Reports no additional musculoskeletal complaints, Denies numbness and Denies tingling Neurologic: Denies dizziness, Denies loss of vision, Denies numbness and Denies tingling Psychiatric: Psychiatric: Reports no additional psychiatric complaints Comments: angela Endocrine: Endocrine: Reports no additional endocrine complaints Hematologic/Lymphatic: Hematologic/Lymphatic: Reports no additional hematologic/lymphatic complaints Allergic/Immunologic: Allergic/Immunologic: Reports no additional allergic/immunologic complaints PMFSH Past Medical History Attestation statement: The following information was validated with the patient. Source: old records reviewed and nursing notes reviewed Social History Social History Household Members: Other Household Members Other:: [facility] with 4 or 5 roommates. Housing: Apartment Do you presently have visiting nurse or other home services: No Patient Tobacco Use Status: Never used Tobacco Advance Directives: No Advance Directives Information Provided: Yes service: No Sexual orientation: Did not discuss. Physical Exam ED Vital Signs: Vital Signs - 24 hr 11/27/22 13:17 Temperature 99.8 F Pulse Rate 62 Respiratory Rate 16 Blood Pressure 133/70 Pulse Oximetry 95 Oxygen Delivery Method Room Air BMI result Body Mass Index 22.0 Const General: cooperative, no acute distress, alert and awake Nutritional Appearance: well nourished Orientation/consciousness: patient oriented x3 Limitations: no limitations HENMT Head: Yes normal to inspection and Yes atraumatic Ears: hearing grossly normal bilaterally and external ears normal General nose exam: Normal external nose present, no nasal discharge noted and no epistaxis Face and sinus: Yes normal facial exam, No abrasion and No laceration Mouth: Normal oral and palatal mucosa present, no drooling and no muffled voice Eyes General: appearance normal, both eyes and all related structures Periorbital: periorbital findings normal Eyelids: Yes eyelids normal Conjunctivae: conjunctivae normal Pupils: Equal, round and reactive pupils present EOM: EOMs intact bilaterally Neck Neck: Yes normal visual inspection, Yes full ROM and Yes no lymphadenopathy Chest Chest palpation & inspection: normal inspection of the chest Resp Effort & Inspection: normal respiratory effort and able to speak in complete sentences Auscultation: clear to auscultation bilaterally Cardio Rate: regular rate Rhythm: regular rhythm GI Inspection: Yes normal to inspection Palpation (GI): Soft to palpation, not firm, nontender and no guarding Neuro General: patient oriented x3 and moves all extremities Cranial nerves: Yes Equal, round and reactive pupils present Cognition (Neuro): normal cognition Motor exam (neuro): 5/5 motor strength present throughout Sensory Exam: Normal double simultaneous stimulation for sensation Coordination: [id number] test normal Extrem General: Yes normal to inspection, Yes full ROM and Yes capillary refill normal Psych Appearance: grossly normal Mental Status: mental status grossly normal Affect: normal affect Attitude: cooperative Thought process: Normal thought process present Thought content: Normal thought content present Insight: Good insight present (Psych) Medical Decision Making Medical Decision Making MDM Narrative: Patient is a 22 year old assigned male at with a history of schizoaffective disorder presenting to the emergency department today with medication non-compliance. Patient's physical exam was unremarkable. I explained my physical exam findings as well as all test results to the patient. I answered all questions asked by the patient. Patient was evaluated by CARE team who recommended psychiatric admission. At this time, patient is pending admission. Differential Diagnosis Differential Diagnoses: The differential diagnosis associated with the presentation includes Medication non-compliance Consult Healthcare Provider Management of the patient was discussed with: Behavioral Health Provider (Recommends psychiatric admission) Lab Data MDM Lab Attestation statement: I reviewed the patient's lab results. Labs: Lab Results 11/27/22 11/27/22 Range/Units 13:29 14:56 Urine Opiates Screen Not Detected (Not Detect) Urine Fentanyl Screen Not Detected (Not Detect) Ur Barbiturates Screen Not Detected (Not Detect) Ur Phencyclidine Scrn Not Detected (Not Detect) Ur Amphetamines Screen Not Detected (Not Detect) U Benzodiazepines Scrn Not Detected (Not Detect) Urine Cocaine Screen Not Detected (Not Detect) U Marijuana (THC) Screen POSITIVE H (Not Detect) Influenza Type A (PCR) NEGATIVE (Negative) Influenza Type B (PCR) NEGATIVE (Negative) RSV RNA Qual (PCR) NEGATIVE (Negative) SARS-CoV-2 RNA (RT-PCR) NEGATIVE (Negative) Discharge Plan Discharge Clinical Impression: Schizoaffective disorder, bipolar type Patient Disposition: Still a Patient Prescriptions: No Action olanzapine 5 mg tablet 1 tab PO BEDTIME hydroxyzine pamoate 50 mg capsule 1 cap PO TID melatonin 3 mg tablet 1 tab PO BEDTIME divalproex 500 mg tablet,delayed release (DR/EC) 1 tab PO BID guanfacine 1 mg tablet 1 tab PO BEDTIME olanzapine 20 mg tablet 1 tab PO BEDTIME
--- NOTE | 2022-11-27 12:50 | MHC.CARE ---
Pt was [facility] in the community and is a bedsearch
[2022-11-27 13:17] VITALS: BP 133/70; PULSE 62; RESP 16; TEMP 37.7; O2SAT 95
[2022-11-27 14:13] LABS: Influenza A PCR NEGATIVE (Negative); Influenza B PCR NEGATIVE (Negative); Resp Syncy Virus RNA Qual PCR NEGATIVE (Negative); SARS COV2 PCR INHOUSE NEGATIVE (Negative)
[2022-11-27 15:20] LABS: Amphetamine Screen Urine Not Detected (Not Detect); Barbiturates, Urine Not Detected (Not Detect); Benzodiazepines Screen Urine Not Detected (Not Detect); Cannabinoid Screen Urine POSITIVE (Not Detect); Cocaine Screen Urine Not Detected (Not Detect); Fentanyl, urine Not Detected (Not Detect); Opiate Screen Urine Not Detected (Not Detect); Phencyclidine Screen Urine Not Detected (Not Detect)
--- NOTE | 2022-11-27 17:00 | PC.NURSE ---
Urine test order cancelled because the patient is male. Was entered in error.
--- NOTE | 2022-11-27 19:00 | MHC.EDTECH ---
pt refused labs when approached by t/w. rn aracely franz.
--- NOTE | 2022-11-27 20:32 | MHC.EDTECH ---
pt allowed t/w to perform bloodwork. pt began to withdraw arm and pull out needle while t/w was drawing the labs. t/w educated pt on safety practices during blood draw and explained it is unsafe to move around during lab draws for everyone. t/w sent tubes that were full. t/w is unable to obtain the rest due to pt's inability to follow directions during labs. rn aware
[2022-11-27 20:52] LABS: Acetaminophen LAB < 17 mcg/mL (<30); Alanine Aminotransferase 16 U/L (0-40); Albumin Level 4.2 g/dL (3.5-5.0); Alkaline Phosphatase 64 U/L (39-117); Anion Gap 15 (12-20); Aspartate Amino Transferase 15 U/L (5-37); Bilirubin Total 0.8 mg/dL (0.0-1.0); Blood Urea Nitrogen 10 mg/dL (9-16); Calcium 9.6 mg/dL (8.4-10.2); Carbon Dioxide 25 mmol/L (22-29); Chloride 104 mmol/L (96-108); Creatinine Clr Calc Pharmacy 119.8; Estimated Glomerular Filt Rate > 60; Ethanol < 10 mg/dL; Glucose Random 88 mg/dL (60-115); Potassium 3.3 mmol/L (3.3-5.1); Salicylate < 5.0 mg/dL (15-30); Sodium 141 mmol/L (135-145); Total Protein 6.2 g/dL (6.5-8.0); Valproate < 12.5 mcg/mL (50.0-100.0)
[2022-11-27 22:26] VITALS: BP 113/64; PULSE 71; RESP 17; TEMP 37; O2SAT 98
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
[2022-11-28 08:11] LABS: MANUAL DIFF FLAG NO
[2022-11-28 08:17] LABS: Basophils Percent Auto 0.2 % (0-2); Eosinophils Absolute Auto 0.1 X10*3/uL (0.0-0.4); Eosinophils Percent Auto 1.1 % (0-4); Hematocrit 45.2 % (42.0-52.0); Hemoglobin 15.7 g/dl (14.0-18.0); Imm Gran Abs Auto 0.03 X10*3/uL (0.00-0.03); Imm Gran Pct Auto 0.6 % (0.0-0.4); Lymphocytes Absolute Auto 1.7 X10*3/uL (1.2-4.9); Lymphocytes Percent Auto 31.6 % (20-40); Mean Corpuscular HGB Conc 34.7 g/dl (31.0-36.0); Mean Corpuscular Hemoglobin 29.6 pg (27.0-33.0); Mean Corpuscular Volume 85.1 fL (80.0-98.0); Mean Platelet Volume 10.2 fL (9.4-12.4); Monocytes Absolute Auto 0.3 X10*3/uL (0.1-1.2); Monocytes Percent Auto 5.7 % (2-11); Neutrophils Absolute Auto 3.3 x10*3/uL (2.0-8.3); Neutrophils Percent Auto 60.8 % (45-73); Platelet Count 285 X10*3/uL (160-400); Red Blood Count 5.31 X10*6/uL (4.60-5.80); Red Cell Distribution Width 12.7 % (11.0-16.0); White Blood Count 5.4 X10*3/uL (4.8-10.8)
[2022-11-28] MEDS: Divalproex Sodium 500 MG TABLET.DR PO ×2 (08:40→21:56)
[2022-11-28] MEDS: hydrOXYzine HCL 50 MG TABLET PO ×3 (08:40→22:03)
[2022-11-28 08:41] VITALS: BP 118/58; PULSE 78; RESP 18; TEMP 36.4; O2SAT 96
[2022-11-28 08:50] LABS: Alanine Aminotransferase 15 U/L (0-40); Albumin Level 4.1 g/dL (3.5-5.0); Alkaline Phosphatase 64 U/L (39-117); Anion Gap 14 (12-20); Aspartate Amino Transferase 14 U/L (5-37); Blood Urea Nitrogen 7 mg/dL (9-16); Calcium 9.5 mg/dL (8.4-10.2); Carbon Dioxide 27 mmol/L (22-29); Chloride 105 mmol/L (96-108); Cholesterol 142 mg/dL; Creatinine Clr Calc Pharmacy 104.3; Estimated Glomerular Filt Rate > 60; Glucose Fasting 87 mg/dL (60-99); HDL Cholesterol 34 mg/dL; LDL Cholesterol Calculated 97 mg/dl; Potassium 3.5 mmol/L (3.3-5.1); Sodium 142 mmol/L (135-145); Total Protein 6.1 g/dL (6.5-8.0); Triglycerides 58 mg/dL
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
[2022-11-28 19:00] VITALS: BP 107/55; PULSE 61; TEMP 36.8; O2SAT 99
[2022-11-28] MEDS: OLANZapine 5 MG TABLET PO (21:56)
[2022-11-28] MEDS: OLANZapine 10 MG TABLET 20 MG PO (21:57)
[2022-11-28] MEDS: Melatonin 3 MG TABLET PO (21:57)
[2022-11-29 08:30] VITALS: BP 106/57; PULSE 79; RESP 16; TEMP 36.4; O2SAT 95
[2022-11-29] MEDS: hydrOXYzine HCL 50 MG TABLET PO ×3 (08:36→19:34)
[2022-11-29] MEDS: Divalproex Sodium 500 MG TABLET.DR PO ×2 (08:36→19:34)
--- NOTE | 2022-11-29 13:55 | P.PNPSI_ITS ---
Subjective Subjective Date of Service: 11/29/22 Reason For Visit: Psychosis Interim History: Patient seen and discussed. He reports he is doing well. He has been adherent to his medications. He reports good sleep and appetite. He is mostly isolative to his rom and doesn't socialize. He denies any complaints. Denies SI, AVH. His answers remain monosyllabic and he is guarded. Review of Systems Review of Systems Yes all other systems are reviewed and are negative Constitutional: Reports no additional constitutional complaints, Denies chills, Denies fever(s) and Denies night sweats Eyes: Reports no additional eye complaints, Denies blurry vision, Denies change in vision, Denies diplopia, Denies eye discharge, Denies loss of vision and Denies eye pain Denies dizziness Cardiovascular: Reports no additional cardiovascular complaints, Denies chest pain, Denies lightheadedness, Denies Loss of Consciousness and Denies dyspnea Respiratory: Reports no additional respiratory complaints and Denies dyspnea Gastrointestinal: Reports no additional gastrointestinal complaints, Denies abdominal pain, Denies melena, Denies hematochezia, Denies change in bowel habits and Denies change in stool character Genitourinary: Reports no additional male genitourinary complaints, Denies he maturia, Denies oliguria, Denies difficulty urinating, Denies dysuria, Denies urinary frequency, Denies urinary hesitancy, Denies urinary incontinence and Denies urinary urgency Musculoskeletal: Reports no additional musculoskeletal complaints, Denies numbness and Denies tingling Denies dizziness, Denies loss of vision, Denies numbness and Denies tingling Psychiatric: Reports no additional psychiatric complaints Endocrine: Reports no additional endocrine complaints Hematologic/Lymphatic: Reports no additional hematologic/lymphatic complaints Allergic/Immunologic: Reports no additional allergic/immunologic complaints Mental Status Exam Mental Status Exam Patient Appearance: Disheveled Patient Orientation: Person, Place and Time Level of Consciousness: Awake Patient Behavior: Guarded, Suspicious, Avoidant and Poor Eye Contact (Intermittent intense) Mood Description: Suspicious and Blunted Affect Description: Suspicious and Blunted Patient Cognition Impaired: No Ability to Follow Directions: Good Speech Pattern: Clear and Impoverished Memory Description: Intact Diagnostics Vital Signs (24Hr): Vital Signs - 24 hr 11/29/22 08:30 11/29/22 17:01 Temperature 97.6 F 97.2 F Pulse Rate 79 77 Respiratory Rate 16 16 Blood Pressure 106/57 L 120/55 L Pulse Oximetry 95 98 Oxygen Delivery Method Room Air Room Air BMI result Body Mass Index 22.0 Labs 11/28/22 07:56 11/28/22 07:56 Labs: Laboratory Results - last 48 hr 11/28/22 11/28/22 07:56 07:56 WBC 5.4 RBC 5.31 Hgb 15.7 Hct 45.2 MCV 85.1 MCH 29.6 MCHC 34.7 RDW 12.7 Plt Count 285 MPV 10.2 Immature Gran % (Auto) 0.6 H Neut % (Auto) 60.8 Lymph % (Auto) 31.6 Lea % (Auto) 5.7 Eos % (Auto) 1.1 Baso % (Auto) 0.2 Lymph # (Auto) 1.7 Lea # (Auto) 0.3 Eos # (Auto) 0.1 Baso # (Auto) 0.0 Abs Immat Gran (auto) 0.03 Absolute Neuts (auto) 3.3 Absolute Nucleated RBC 0.000 Nucleated RBC % (auto) 0.0 Sodium 142 Potassium 3.5 Chloride 105 Carbon Dioxide 27 Anion Gap 14 BUN 7 L Creatinine 1.01 Estim Creat Clear Calc 104.3 Estimated GFR > 60 Fasting Glucose 87 Calcium 9.5 Total Bilirubin 1.0 AST 14 ALT 15 Alkaline Phosphatase 64 Total Protein 6.1 L Albumin 4.1 Triglycerides 58 Cholesterol 142 LDL Cholesterol, Calc 97 HDL Cholesterol 34 Medications Medications Current Medications Acetaminophen (Acetaminophen 325 Mg Tablet) 650 mg PO Q6H PRN PRN Reason: Headache/Pain Mild Scale (1-3) Al Hydroxide/Mg Hydroxide (Magnesium Hydrox/Alum Hydrox 30 Ml Oral.Susp) 30 ml PO Q6H PRN PRN Reason: Heartburn/Nausea Divalproex Sodium (Divalproex Sodium 500 Mg Tablet.Dr) 500 mg PO BID [facility] Last Admin: 11/29/22 19:34 Dose: 500 mg Hydroxyzine HCl (Hydroxyzine Hcl 25 Mg Tablet) 25 mg PO Q6H PRN PRN Reason: Anxiety Hydroxyzine HCl (Hydroxyzine Hcl 50 Mg Tablet) 50 mg PO TID [facility] Last Admin: 11/29/22 19:34 Dose: 50 mg Magnesium Hydroxide (Milk Of Magnesia 30 Ml Oral.Susp) 30 ml PO DAILY PRN PRN Reason: Constipation Melatonin (Melatonin 3 Mg Tablet) 3 mg PO BEDTIME [facility] Last Admin: 11/29/22 21:20 Dose: Not Given Non-Formulary Medication (Guanfacine) 1 tab PO BEDTIME [facility] Olanzapine (Olanzapine 5 Mg Tablet) 5 mg PO BEDTIME [facility] Last Admin: 11/29/22 19:34 Dose: 5 mg Olanzapine (Olanzapine 10 Mg Tablet) 20 mg PO BEDTIME [facility] Last Admin: 11/29/22 19:34 Dose: 20 mg Trazodone HCl (Trazodone Hcl 50 Mg Tablet) 50 mg PO BEDTIME PRN PRN Reason: Insomnia Allergies Allergies Allergy/AdvReac Type Severity Reaction Status Date / Time fish derived [fish] AdvReac Stomach Verified 06/18/22 13:12 Upset Assessment & Plan Assessment & Plan (1) Schizoaffective disorder, bipolar type: Status: Acute Code(s): F25.0 - Schizoaffective disorder, bipolar type Assessment and Plan: 22 year old male, single. History of schizoaffective do vs schizophrenia who resides in an [facility] independent living home. He is transferred from [facility] due to disorganized behavior in the context of non-adherence to medications. He says they wanted to check my sugars and that's why they sent me here. Patient was difficult to engage and denying any symptoms. He answered one word answers and had no insight into the reasons for being admitted. Most of the history was obtained from [facility] crisis report. He has reportedly been increasingly disorganized and was defecating on the floor in his apartment. There was an intense bad odor. He has been neglecting his hygiene. His apartment was disorganized. There were pills found on his bed. He was increasingly paranoid. Plan - Admit to - Restartoutpatient medications. - Encourage milieu and group therapy - Systems collaterals. - Stabilization and disposition planning. 11/29: Continue treatment plan. Reason for contiued inpatient stay Substantial Risk for: inability to function and rapid decompensation Time Spent With Patient Time: Total time managing care of this patient today ____ minutes.
[2022-11-29 17:01] VITALS: BP 120/55; PULSE 77; RESP 16; TEMP 36.2; O2SAT 98
[2022-11-29] MEDS: OLANZapine 10 MG TABLET 20 MG PO (19:34)
[2022-11-29] MEDS: OLANZapine 5 MG TABLET PO (19:34)
[2022-11-30 09:01] VITALS: BP 108/69; PULSE 98; RESP 16; TEMP 36.5; O2SAT 97
[2022-11-30] MEDS: Divalproex Sodium 500 MG TABLET.DR PO ×2 (09:39→21:57)
[2022-11-30] MEDS: hydrOXYzine HCL 50 MG TABLET PO ×3 (09:39→21:56)
--- NOTE | 2022-11-30 11:38 | HO.PSYCHPN ---
Subjective Subjective Date of Service: 11/30/22 Reason For Visit: Psychosis Subjective Notes: Conditional Voluntary Healthcare Proxy: No Guardianship: No Medical Problems Affecting Mental Status: No Interim History: Pt signed a three day notice citing wanting to return to work. He does not recall precipitants to admission He reports he does not know what medications he takes He reports he is feeling well. He is holding a wig which he reports was his grandmothers. Medication Compliance: Yes Side effects from medications: No Attending Groups: No Review of Systems Acute medical concerns: No Medical Review of Systems: unchanged Mental Status Exam Mental Status Exam Patient Appearance: Appropriate Patient Orientation: Person, Place and Time Level of Consciousness: Alert Patient Behavior: Talkative and Good Eye Contact Mood Description: Apprehensive Affect Description: Apprehensive Patient Cognition Impaired: No Ability to Follow Directions: Good Speech Pattern: Spontaneous Speech Memory Description: Remote Impaired and Episodic Impaired Delusions: Paranoid Ideation and Present Thought Process: Distracted Thought Content: positive for Circumstantial, positive for Perseveration, positive for Preoccupation and positive for Tangential Depressive Symptoms: Increased Anxiety and Difficulty Concentrating Abnormal Motor Activity Signs and Symptoms: Restlessness Judgement: Fair Diagnostics Vital Signs (24Hr): Vital Signs - 24 hr 11/29/22 17:01 11/30/22 09:01 Temperature 97.2 F 97.7 F Pulse Rate 77 98 Respiratory Rate 16 16 Blood Pressure 120/55 L 108/69 Pulse Oximetry 98 97 Oxygen Delivery Method Room Air Room Air BMI result Body Mass Index 22.0 Labs 11/28/22 07:56 11/28/22 07:56 Medications Medications Current Medications Acetaminophen (Acetaminophen 325 Mg Tablet) 650 mg PO Q6H PRN PRN Reason: Headache/Pain Mild Scale (1-3) Al Hydroxide/Mg Hydroxide (Magnesium Hydrox/Alum Hydrox 30 Ml Oral.Susp) 30 ml PO Q6H PRN PRN Reason: Heartburn/Nausea Divalproex Sodium (Divalproex Sodium 500 Mg Tablet.) 500 mg PO BID [facility] Last Admin: 11/30/22 09:39 Dose: 500 mg Hydroxyzine HCl (Hydroxyzine Hcl 25 Mg Tablet) 25 mg PO Q6H PRN PRN Reason: Anxiety Hydroxyzine HCl (Hydroxyzine Hcl 50 Mg Tablet) 50 mg PO TID [facility] Last Admin: 11/30/22 09:39 Dose: 50 mg Magnesium Hydroxide (Milk Of Magnesia 30 Ml Oral.Susp) 30 ml PO DAILY PRN PRN Reason: Constipation Melatonin (Melatonin 3 Mg Tablet) 3 mg PO BEDTIME [facility] Last Admin: 11/29/22 21:20 Dose: Not Given Non-Formulary Medication (Guanfacine) 1 tab PO BEDTIME [facility] Olanzapine (Olanzapine 5 Mg Tablet) 5 mg PO BEDTIME [facility] Last Admin: 11/29/22 19:34 Dose: 5 mg Olanzapine (Olanzapine 10 Mg Tablet) 20 mg PO BEDTIME [facility] Last Admin: 11/29/22 19:34 Dose: 20 mg Trazodone HCl (Trazodone Hcl 50 Mg Tablet) 50 mg PO BEDTIME PRN PRN Reason: Insomnia Allergies Allergies Allergy/AdvReac Type Severity Reaction Status Date / Time fish derived [fish] AdvReac Stomach Verified 06/18/22 13:12 Upset Assessment & Plan Assessment & Plan (1) Schizoaffective disorder, bipolar type: Status: Acute Code(s): F25.0 - Schizoaffective disorder, bipolar type Assessment and Plan: 22 year old male, single. History of schizoaffective do vs schizophrenia who resides in an [facility] independent living home. He is transferred from [facility] due to disorganized behavior in the context of non-adherence to medications. He says they wanted to check my sugars and that's why they sent me here. Patient was difficult to engage and denying any symptoms. He answered one word answers and had no insight into the reasons for being admitted. Most of the history was obtained from [facility] crisis report. He has reportedly been increasingly disorganized and was defecating on the floor in his apartment. There was an intense bad odor. He has been neglecting his hygiene. His apartment was disorganized. There were pills found on his bed. He was increasingly paranoid. Plan - Admit to - Restartoutpatient medications. - Encourage milieu and group therapy - Systems collaterals. - Stabilization and disposition planning. 11/29: Continue treatment plan. 11/30/22: Continue current plan. Patient educated on: medication risk/benefits and therapeutic strategies Informed Consent: further education needed Reason for contiued inpatient stay Substantial Risk for: harm to self, harm to others, inability to function and rapid decompensation Time Spent With Patient Time: Total time managing care of this patient today 20 minutes.
[2022-11-30 17:00] VITALS: BP 115/56; PULSE 126; TEMP 36.6; O2SAT 99
[2022-11-30] MEDS: OLANZapine 10 MG TABLET 20 MG PO (21:57)
[2022-11-30] MEDS: OLANZapine 5 MG TABLET PO (21:57)
[2022-12-01] MEDS: hydrOXYzine HCL 50 MG TABLET PO ×3 (09:21→20:40)
[2022-12-01] MEDS: Divalproex Sodium 500 MG TABLET.DR PO ×2 (09:21→20:40)
[2022-12-01] MEDS: Nicotine 7 MG PATCH.TD24 TRANSDERMA (09:21)
[2022-12-01 09:50] VITALS: BP 124/69; PULSE 67; RESP 16; TEMP 36.2; O2SAT 100
--- NOTE | 2022-12-01 10:39 | HO.PSYCHPN ---
Subjective Subjective Date of Service: 12/01/22 Reason For Visit: Psychosis Subjective Notes: 3 Day Healthcare Proxy: No Guardianship: No Medical Problems Affecting Mental Status: No Interim History: Reviewed in team Pt with three day notice filed to 12/03/22 Met with pt, review of medications. Denies current sx. Discussed precipitants, stopping medications, behavioral sx of concern. Pt believes there is misunderstanding of events. Denies troublesome SE of meds which would precipitate stopping Denies defecation on the floor of his apartment. Medication Compliance: Yes Side effects from medications: No Attending Groups: No Review of Systems Acute medical concerns: No Medical Review of Systems: unchanged Mental Status Exam Mental Status Exam Patient Appearance: Appropriate Patient Orientation: Person, Place and Time Level of Consciousness: Alert Patient Behavior: Talkative and Good Eye Contact Mood Description: Apprehensive Affect Description: Apprehensive Patient Cognition Impaired: No Ability to Follow Directions: Good Speech Pattern: Spontaneous Speech Memory Description: Remote Impaired and Episodic Impaired Delusions: Paranoid Ideation and Present Thought Process: Distracted Thought Content: positive for Circumstantial, positive for Perseveration, positive for Preoccupation and positive for Tangential Depressive Symptoms: Increased Anxiety and Difficulty Concentrating Abnormal Motor Activity Signs and Symptoms: Restlessness Judgement: Fair Diagnostics Vital Signs (24Hr): Vital Signs - 24 hr 11/30/22 17:00 12/01/22 09:50 Temperature 97.8 F 97.2 F Pulse Rate 126 H 67 Respiratory Rate 16 Blood Pressure 115/56 L 124/69 Pulse Oximetry 99 100 Oxygen Delivery Method Room Air Room Air BMI result Body Mass Index 22.0 Labs 11/28/22 07:56 11/28/22 07:56 Medications Medications Current Medications Acetaminophen (Acetaminophen 325 Mg Tablet) 650 mg PO Q6H PRN PRN Reason: Headache/Pain Mild Scale (1-3) Al Hydroxide/Mg Hydroxide (Magnesium Hydrox/Alum Hydrox 30 Ml Oral.Susp) 30 ml PO Q6H PRN PRN Reason: Heartburn/Nausea Divalproex Sodium (Divalproex Sodium 500 Mg Tablet.Dr) 500 mg PO BID [facility] Last Admin: 12/01/22 09:21 Dose: 500 mg Hydroxyzine HCl (Hydroxyzine Hcl 25 Mg Tablet) 25 mg PO Q6H PRN PRN Reason: Anxiety Hydroxyzine HCl (Hydroxyzine Hcl 50 Mg Tablet) 50 mg PO TID [facility] Last Admin: 12/01/22 09:21 Dose: 50 mg Magnesium Hydroxide (Milk Of Magnesia 30 Ml Oral.Susp) 30 ml PO DAILY PRN PRN Reason: Constipation Melatonin (Melatonin 3 Mg Tablet) 3 mg PO BEDTIME [facility] Last Admin: 11/30/22 21:58 Dose: Not Given Nicotine (Nicotine 7 Mg Patch.Td24) 7 mg TRANSDERMA DAILY [facility] Last Admin: 12/01/22 09:21 Dose: 7 mg Nicotine Polacrilex (Nicotine Polacrilex 2 Mg Gum) 2 mg BUCCAL Q2H PRN PRN Reason: Nicotine Cravings Non-Formulary Medication (Guanfacine) 1 tab PO BEDTIME [facility] Olanzapine (Olanzapine 5 Mg Tablet) 5 mg PO BEDTIME [facility] Last Admin: 11/30/22 21:57 Dose: 5 mg Olanzapine (Olanzapine 10 Mg Tablet) 20 mg PO BEDTIME [facility] Last Admin: 11/30/22 21:57 Dose: 20 mg Trazodone HCl (Trazodone Hcl 50 Mg Tablet) 50 mg PO BEDTIME PRN PRN Reason: Insomnia Allergies Allergies Allergy/AdvReac Type Severity Reaction Status Date / Time fish derived [fish] AdvReac Stomach Verified 06/18/22 13:12 Upset Assessment & Plan Assessment & Plan (1) Schizoaffective disorder, bipolar type: Status: Acute Code(s): F25.0 - Schizoaffective disorder, bipolar type Assessment and Plan: 22 year old male, single. History of schizoaffective do vs schizophrenia who resides in an [facility] independent living home. He is transferred from [facility] due to disorganized behavior in the context of non-adherence to medications. He says they wanted to check my sugars and that's why they sent me here. Patient was difficult to engage and denying any symptoms. He answered one word answers and had no insight into the reasons for being admitted. Most of the history was obtained from [facility] crisis report. He has reportedly been increasingly disorganized and was defecating on the floor in his apartment. There was an intense bad odor. He has been neglecting his hygiene. His apartment was disorganized. There were pills found on his bed. He was increasingly paranoid. Plan - Admit to - Restartoutpatient medications. - Encourage milieu and group therapy - Systems collaterals. - Stabilization and disposition planning. 11/29: Continue treatment plan. 11/30/22: Continue current plan. 12/01/22: Continue current regime. TDN 2.2.23 Patient educated on: medication risk/benefits and therapeutic strategies Informed Consent: understands Reason for contiued inpatient stay Substantial Risk for: rapid decompensation Time Spent With Patient Time: Total time managing care of this patient today 30 minutes.
[2022-12-01 18:07] VITALS: BP 130/69; PULSE 105; TEMP 37
[2022-12-01] MEDS: OLANZapine 10 MG TABLET 20 MG PO (20:40)
[2022-12-01] MEDS: OLANZapine 5 MG TABLET PO (20:40)
[2022-12-02 06:00] VITALS: BP 117/55; PULSE 84; RESP 16; TEMP 36.9
[2022-12-02] MEDS: hydrOXYzine HCL 50 MG TABLET PO ×3 (09:19→21:00)
[2022-12-02] MEDS: Divalproex Sodium 500 MG TABLET.DR PO ×2 (09:19→21:00)
[2022-12-02 18:00] VITALS: BP 132/61; PULSE 95; RESP 20; TEMP 37.4; O2SAT 99
--- NOTE | 2022-12-02 20:09 | HO.PSYCHPN ---
Subjective Subjective Date of Service: 12/02/22 Reason For Visit: Psychosis Subjective Notes: 3 Day Healthcare Proxy: No Guardianship: No Medical Problems Affecting Mental Status: No Interim History: Reviewed in team Team arranging for VNA,locked med box to assist pt in compliance DM met with pt on Wednesday afternoon TDN in effect to 12/03/22. Reviewed in team-no sx/behaviors of concern presented in milieu. Met with pt, states he is feeling well, comfortable on the unit but remaining to himself mostly he states Prepared to return to his home tomorrow. Medication Compliance: Yes Side effects from medications: No Attending Groups: Intermittent Review of Systems Acute medical concerns: No Medical Review of Systems: unchanged Mental Status Exam Mental Status Exam Patient Appearance: Appropriate Patient Orientation: Person, Place and Time Level of Consciousness: Alert Patient Behavior: Talkative and Good Eye Contact Mood Description: Apprehensive Affect Description: Apprehensive Patient Cognition Impaired: No Ability to Follow Directions: Good Speech Pattern: Spontaneous Speech Memory Description: Remote Impaired and Episodic Impaired Thought Process: Intact Thought Content: positive for Circumstantial Depressive Symptoms: Increased Anxiety Judgement: Good Diagnostics Vital Signs (24Hr): Vital Signs - 24 hr 12/02/22 06:00 12/02/22 18:00 Temperature 98.4 F 99.3 F Pulse Rate 84 95 Respiratory Rate 16 20 Blood Pressure 117/55 L 132/61 Pulse Oximetry 99 Oxygen Delivery Method Room Air Room Air BMI result Body Mass Index 22.0 Labs 11/28/22 07:56 11/28/22 07:56 Medications Medications Current Medications Acetaminophen (Acetaminophen 325 Mg Tablet) 650 mg PO Q6H PRN PRN Reason: Headache/Pain Mild Scale (1-3) Al Hydroxide/Mg Hydroxide (Magnesium Hydrox/Alum Hydrox 30 Ml Oral.Susp) 30 ml PO Q6H PRN PRN Reason: Heartburn/Nausea Divalproex Sodium (Divalproex Sodium 500 Mg Tablet.) 500 mg PO BID [facility] Last Admin: 12/02/22 09:19 Dose: 500 mg Hydroxyzine HCl (Hydroxyzine Hcl 25 Mg Tablet) 25 mg PO Q6H PRN PRN Reason: Anxiety Hydroxyzine HCl (Hydroxyzine Hcl 50 Mg Tablet) 50 mg PO TID [facility] Last Admin: 12/02/22 14:29 Dose: 50 mg Magnesium Hydroxide (Milk Of Magnesia 30 Ml Oral.Susp) 30 ml PO DAILY PRN PRN Reason: Constipation Melatonin (Melatonin 3 Mg Tablet) 3 mg PO BEDTIME [facility] Last Admin: 12/01/22 20:42 Dose: Not Given Nicotine (Nicotine 7 Mg Patch.Td24) 7 mg TRANSDERMA DAILY [facility] Last Admin: 12/02/22 09:38 Dose: Not Given Nicotine Polacrilex (Nicotine Polacrilex 2 Mg Gum) 2 mg BUCCAL Q2H PRN PRN Reason: Nicotine Cravings Non-Formulary Medication (Guanfacine) 1 tab PO BEDTIME [facility] Olanzapine (Olanzapine 5 Mg Tablet) 5 mg PO BEDTIME [facility] Last Admin: 12/01/22 20:40 Dose: 5 mg Olanzapine (Olanzapine 10 Mg Tablet) 20 mg PO BEDTIME [facility] Last Admin: 12/01/22 20:40 Dose: 20 mg Trazodone HCl (Trazodone Hcl 50 Mg Tablet) 50 mg PO BEDTIME PRN PRN Reason: Insomnia Allergies Allergies Allergy/AdvReac Type Severity Reaction Status Date / Time fish derived [fish] AdvReac Stomach Verified 06/18/22 13:12 Upset Assessment & Plan Assessment & Plan (1) Schizoaffective disorder, bipolar type: Status: Acute Code(s): F25.0 - Schizoaffective disorder, bipolar type Assessment and Plan: 22 year old male, single. History of schizoaffective do vs schizophrenia who resides in an [facility] independent living home. He is transferred from [facility] due to disorganized behavior in the context of non-adherence to medications. He says they wanted to check my sugars and that's why they sent me here. Patient was difficult to engage and denying any symptoms. He answered one word answers and had no insight into the reasons for being admitted. Most of the history was obtained from [facility] crisis report. He has reportedly been increasingly disorganized and was defecating on the floor in his apartment. There was an intense bad odor. He has been neglecting his hygiene. His apartment was disorganized. There were pills found on his bed. He was increasingly paranoid. Plan - Admit to [facility] - Restartoutpatient medications. - Encourage milieu and group therapy - Systems collaterals. - Stabilization and disposition planning. 11/29: Continue treatment plan. 11/30/22: Continue current plan. 12/02/22: Continue current plan. TDN to 2/2/23 Patient educated on: medication risk/benefits and therapeutic strategies Informed Consent: further education needed Reason for contiued inpatient stay Substantial Risk for: inability to function and rapid decompensation Time Spent With Patient Time: Total time managing care of this patient today 15 minutes.
[2022-12-02] MEDS: OLANZapine 10 MG TABLET 20 MG PO (21:01)
[2022-12-02] MEDS: OLANZapine 5 MG TABLET PO (21:01)
[2022-12-03] MEDS: hydrOXYzine HCL 50 MG TABLET PO (08:58)
[2022-12-03] MEDS: Divalproex Sodium 500 MG TABLET.DR PO (08:58)
[2022-12-03 09:14] VITALS: BP 109/62; PULSE 103; RESP 16; TEMP 36.4; O2SAT 95
[2022-12-03 09:15] VITALS: BMI 25.7
--- NOTE | 2022-12-03 12:22 | P.DS_ITS ---
DS: Providers Provider Date of Service: 12/03/22 Date of admission: 11/27/22 22:32 Date of discharge: 12/03/22 Primary care physician: Unknown Physician Admitting clinician: Venancio Woods Attending physician on admission: Venancio Woods Consults: 11/27/22 12:47 Consult to Care Team Stat Comment: Reason for consultation: Crisis Attending physician on discharge: Cody Abarca Discharging clinician: Cayla Tavera DS: Diagnosis Discharge Diagnosis (1) Schizoaffective disorder, bipolar type: Status: Acute DS: Medications Discharge Medications Home Medications: Previous Rx's Medication Instructions Recorded divalproex 500 mg tablet,delayed 1 tab PO BID #30 tabs 12/03/22 release guanfacine 1 mg tablet 1 tab PO BEDTIME #15 tabs 12/03/22 hydroxyzine pamoate 50 mg capsule 1 cap PO TID #45 caps 12/03/22 melatonin 3 mg tablet 1 tab PO BEDTIME #15 tabs 12/03/22 nicotine (polacrilex) 2 mg gum 2 mg buccal Q2H PRN Nicotine 12/03/22 Cravings #60 ea nicotine 7 mg/24 hr daily 7 mg transdermal DAILY #30 ea 12/03/22 transdermal patch olanzapine 20 mg tablet 1 tab PO BEDTIME #15 tabs 12/03/22 olanzapine 5 mg tablet 1 tab PO BEDTIME #15 tabs 12/03/22 Mental Status Exam Mental Status Exam Patient Appearance: Appropriate Patient Orientation: Person, Place and Time Level of Consciousness: Alert Patient Behavior: Talkative and Good Eye Contact Mood Description: Apprehensive Affect Description: Apprehensive Patient Cognition Impaired: No Ability to Follow Directions: Good Speech Pattern: Spontaneous Speech Memory Description: Remote Impaired and Episodic Impaired Thought Process: Intact Thought Content: positive for Circumstantial Depressive Symptoms: Increased Anxiety Judgement: Good Data Data Completed and Pending Completed studies during hospitalization [Text1]: 11/27/22 11/27/22 11/27/22 13:29 14:56 20:20 WBC RBC Hgb Hct MCV MCH MCHC RDW Plt Count MPV Immature Gran % (Auto) Neut % (Auto) Lymph % (Auto) [place] % (Auto) Eos % (Auto) Baso % (Auto) Lymph # (Auto) [place] # (Auto) Eos # (Auto) Baso # (Auto) Abs Immat Gran (auto) Absolute Neuts (auto) Absolute Nucleated RBC Nucleated RBC % (auto) Sodium 141 Potassium 3.3 D Chloride 104 Carbon Dioxide 25 Anion Gap 15 BUN 10 Creatinine 0.88 Estim Creat Clear Calc 119.8 Estimated GFR > 60 Random Glucose 88 Fasting Glucose Calcium 9.6 Total Bilirubin 0.8 AST 15 ALT 16 Alkaline Phosphatase 64 Total Protein 6.2 L Albumin 4.2 Triglycerides Cholesterol LDL Cholesterol, Calc HDL Cholesterol Salicylates < 5.0 L Urine Opiates Screen Not Detected Urine Fentanyl Screen Not Detected Acetaminophen < 17 Ur Barbiturates Screen Not Detected Valproic Acid Ur Phencyclidine Scrn Not Detected Ur Amphetamines Screen Not Detected U Benzodiazepines Scrn Not Detected Urine Cocaine Screen Not Detected U Marijuana (THC) Screen POSITIVE H Ethyl Alcohol Influenza Type A (PCR) NEGATIVE Influenza Type B (PCR) NEGATIVE RSV RNA Qual (PCR) NEGATIVE SARS-CoV-2 RNA (RT-PCR) NEGATIVE 11/27/22 11/27/22 11/28/22 20:20 20:20 07:56 WBC 5.4 RBC 5.31 Hgb 15.7 Hct 45.2 MCV 85.1 MCH 29.6 MCHC 34.7 RDW 12.7 Plt Count 285 MPV 10.2 Immature Gran % (Auto) 0.6 H Neut % (Auto) 60.8 Lymph % (Auto) 31.6 [place] % (Auto) 5.7 Eos % (Auto) 1.1 Baso % (Auto) 0.2 Lymph # (Auto) 1.7 [place] # (Auto) 0.3 Eos # (Auto) 0.1 Baso # (Auto) 0.0 Abs Immat Gran (auto) 0.03 Absolute Neuts (auto) 3.3 Absolute Nucleated RBC 0.000 Nucleated RBC % (auto) 0.0 Sodium Potassium Chloride Carbon Dioxide Anion Gap BUN Creatinine Estim Creat Clear Calc Estimated GFR Random Glucose Fasting Glucose Calcium Total Bilirubin AST ALT Alkaline Phosphatase Total Protein Albumin Triglycerides Cholesterol LDL Cholesterol, Calc HDL Cholesterol Salicylates Urine Opiates Screen Urine Fentanyl Screen Acetaminophen Ur Barbiturates Screen Valproic Acid < 12.5 L Ur Phencyclidine Scrn Ur Amphetamines Screen U Benzodiazepines Scrn Urine Cocaine Screen U Marijuana (THC) Screen Ethyl Alcohol < 10 Influenza Type A (PCR) Influenza Type B (PCR) RSV RNA Qual (PCR) SARS-CoV-2 RNA (RT-PCR) 11/28/22 07:56 WBC RBC Hgb Hct MCV MCH MCHC RDW Plt Count MPV Immature Gran % (Auto) Neut % (Auto) Lymph % (Auto) [place] % (Auto) Eos % (Auto) Baso % (Auto) Lymph # (Auto) [place] # (Auto) Eos # (Auto) Baso # (Auto) Abs Immat Gran (auto) Absolute Neuts (auto) Absolute Nucleated RBC Nucleated RBC % (auto) Sodium 142 Potassium 3.5 Chloride 105 Carbon Dioxide 27 Anion Gap 14 BUN 7 L Creatinine 1.01 Estim Creat Clear Calc 104.3 Estimated GFR > 60 Random Glucose Fasting Glucose 87 Calcium 9.5 Total Bilirubin 1.0 AST 14 ALT 15 Alkaline Phosphatase 64 Total Protein 6.1 L Albumin 4.1 Triglycerides 58 Cholesterol 142 LDL Cholesterol, Calc 97 HDL Cholesterol 34 Salicylates Urine Opiates Screen Urine Fentanyl Screen Acetaminophen Ur Barbiturates Screen Valproic Acid Ur Phencyclidine Scrn Ur Amphetamines Screen U Benzodiazepines Scrn Urine Cocaine Screen U Marijuana (THC) Screen Ethyl Alcohol Influenza Type A (PCR) Influenza Type B (PCR) RSV RNA Qual (PCR) SARS-CoV-2 RNA (RT-PCR) DS: Summary Hospital Course Hospital Course: Admission to adult psychiatry for exacerbation of symptoms of schizoaffective disorder, bipolar type. Pt signed a three day notice on admission. Depakote, Guanfacine, Olanzapine, Hydroxyzine and Melatonin were re-established during the admission. Time spent discussing smoking cessation with patient: 3 to 10 minutes Status at Discharge Functional status at discharge: independent ambulation Overall status at discharge: patient is back to baseline Time Spent with Patient Time attestation: Total time managing care of this patient today 35 minutes. Time spent: Greater than 30 minutes Discharge Plan Discharge Anticipated Discharge Date/Time: 12/03/22 13:56 Patient Disposition: Home, Self-Care Discharge Diagnosis: Schizoaffective Disorder, bipolar type Referrals: Carlos Ashby Visiting RN [Other] - 12/04/22 (fax- [phone] [facility] will reach out post D/C to arrange a visit time) DR. MOLINA, PSYCHIATRY [Other] - 01/14/23 3:00 pm [facility] [Other] - 12/08/22 3:00 pm () Discharge Medications: New nicotine (polacrilex) 2 mg Gum 2 mg buccal Q2H PRN (Reason: Nicotine Cravings) Qty: 60 0RF nicotine 7 mg/24 hr Patch 24 Hour 7 mg transdermal DAILY Qty: 30 0RF Continued olanzapine 5 mg tablet 1 tab PO BEDTIME Qty: 15 1RF hydroxyzine pamoate 50 mg capsule 1 cap PO TID Qty: 45 1RF melatonin 3 mg tablet 1 tab PO BEDTIME Qty: 15 1RF divalproex 500 mg tablet,delayed release (DR/EC) 1 tab PO BID Qty: 30 1RF guanfacine 1 mg tablet 1 tab PO BEDTIME Qty: 15 1RF olanzapine 20 mg tablet 1 tab PO BEDTIME Qty: 15 1RF Discharge Orders: Discharge Order (Routine); Ordered 12/03/22 Ordered By: Cayla Tavera Diet: Advance to usual diet Activity on Discharge: As tolerated Stand Alone Forms: Patient Portal Discharge page, Community Support Care Plan Goals: Maintain mood and safe behaviors Take medications as directed Practice coping skills Connect with out patient providers Health Concerns: Stable mood and behaviors Plan of Treatment: You are leaving on a three day notice. The week of December 07, 2022 you will need to have lab work-Depakote level, Complete Blood Count and Comprehensive Metabolic Panel. Please contact your out patient team to order this. If there is a problem please call my office and we can do these tests here [phone]. Follow up with out patient appointments Take medications as directed Assessment: Pt is leaving on a three day notice. He is fully oriented and without SI/HI He has insight and demonstrates good judgment in terms of wanting to continue treatment and return to his work schedule. He is not in imminent risk of harm to self or others and has a safety plan that includes presenting to the closest ER or calling 911 if feeling unsafe He has been observed closely by the team throughout admission He has not engaged in any behaviors that suggest dangerousness to self or others and has demonstrated appropriate behaviors and impulse control. Discharge Date/Time: 12/03/22 13:36
== END 2022-12-03 13:36 | disposition home or self-care (01) | DRG 750 ==
LOC: HO.ED 19:36 → HO.PM5 22:40
PROVIDERS: Physician Assistant Medical; Psychiatry & Neurology Psychiatry; Admitting Provider Psychiatry & Neurology Psychiatry; Emergency Provider Student in an Organized Health Care Education/Training Program; Visit Provider Clinical Nurse Specialist Psychiatric/Mental Health, Adult
DX: F25.0 Schizoaffective disorder, bipolar type (principal); Z91.14 Patient's other noncompliance with medication regimen; F17.210 Nicotine dependence, cigarettes, uncomplicated; Z71.6 Tobacco abuse counseling; Z20.822 Contact with and (suspected) exposure to COVID-19; Z79.899 Other long term (current) drug therapy
CPT/HCPCS: 0241U; 36415; 80053; 80061; 80143; 80164; 80179; 80307; 82077; 85025; 99285